=== PATIENT | female | born 1940 | race African-American/Black ===

== ENCOUNTER 2016-11-29 09:20 | Outpatient (CLI) ==
[2016-07-08 12:41] VITALS: BMI 23.5
[2016-11-29 10:19] LABS: BASOPHILS % (AUTO) 0.7 % (0.0-3.0); EOSINOPHILS # (AUTO) 0.2 K/ul (0.0-0.7); EOSINOPHILS % (AUTO) 4.3 % (0.0-7.0); HEMOGLOBIN 12.8 g/dl (12.0-16.0); IMMATURE GRANULOCYTE % (AUTO) 0.5 % (0.0-5.0); LYMPHOCYTES # (AUTO) 1.8 K/uL (0.60-3.4); MEAN CORPUSCULAR HEMOGLOBIN 29.8 pg (27.0-31.0); MEAN CORPUSCULAR HGB CONC 32.8 (31.8-35.4); MEAN CORPUSCULAR VOLUME 90.9 fl (81.0-99.0); MONOCYTES # (AUTO) 0.2 K/uL (0.4-2.0); MONOCYTES % (AUTO) 5.5 (0-10); NEUTROPHILS # (AUTO) 2.1 K/ul (2.0-6.9); PLATELET COUNT 231 10^3/uL (140-440); RED BLOOD COUNT 4.29 10^6/ul (4.20-5.40); WHITE BLOOD COUNT 4.39 K/ul (4.6-10.2)
[2016-11-29 10:30] LABS: ALBUMIN 3.8 g/dL (3.4-5.0); ANION GAP 13.7; BILIRUBIN,TOTAL 0.31 mg/dL (0.00-1.20); BUN/CREATININE RATIO 18.94; CALCIUM 9.8 mg/dL (8.2-10.2); CHOL/HDL RATIO 2.4 (4.5-5.5); CREATININE 0.95 mg/dL (0.60-1.30); POTASSIUM 3.7 mmol/L (3.5-5.10); TOTAL PROTEIN 7.6 g/dL (5.8-8.1)
== END 2016-11-29 09:21 | disposition home or self-care (01) ==
LOC: LAB 09:20
PROVIDERS: ATTEND Nurse Practitioner Family
DX: E11.9 Type 2 diabetes mellitus without complications (principal); E78.5 Hyperlipidemia, unspecified; I10 Essential (primary) hypertension
CPT/HCPCS: 36415; 80053; 80061; 83036; 85025

== ENCOUNTER → 2016-12-04 | Outpatient (POV) | payer OTHER ==
[2016-07-08 12:41] VITALS: BMI 23.5
== END ==
LOC: OUTPT 00:01
PROVIDERS: ATTEND Otolaryngology
DX: H91.90 Unspecified hearing loss, unspecified ear (principal)
CPT/HCPCS: 92557; 92567

== ENCOUNTER 2016-12-09 10:50 | Outpatient (CLI) ==
[2016-07-08 12:41] VITALS: BMI 23.5
--- NOTE | 2016-12-09 13:01 | MRI ---
EXAM: Brain MRI without contrast. HISTORY: Headache. COMPARISON: Head CT 03/26/[address] 07/29/2015. TECHNIQUE: Multiplanar, multisequence MR images were acquired of the brain without contrast. FINDINGS: The midline structures are central the ventricles are normal in size and configuration. There is mild prominence of the sulci, particular both parietal lobes and mild prominence of the pos terior bodies and atria of the lateral ventricle bilaterally. There is mild widening of the subarac hnoid space around both cerebellar hemispheres. These findings are compatible with age related invo lutional changes that are greatest involving the parietal lobes and cerebellar hemispheres. The brain parenchyma has no diffusion restriction to suggest acute hypoperfusion or infarction. Sma ll T2 hyperintensities are present in the supratentorial white matter and marlena compatible mild leuko malacia. There is no abnormal dark gradient echo signal. The corpus callosum is normal. The pitui tary gland is unremarkable. There are no intraorbital masses. There has been previous left lens surgery. Hyperostosis frontali s interna is noted. The frontal sinus is hypoplastic. There is mild mucosal thickening and a trace of fluid in the ante rior and middle ethmoid air cells bilaterally, greater on the left and minor mucosal thickening in b oth maxillary sinuses with trace of fluid on the left. Minor mucosal thickening is present in the l eft mastoid air cells. Flow voids are present in the major intracranial arteries and dural venous sinuses. IMPRESSION: 1. No intracranial mass, hemorrhage or acute cerebral infarct. 2. Mild leukomalacia. Possible etiologies include chronic ischemic small vessel disease and sequel a of migraines.
== END 2016-12-09 10:51 | disposition home or self-care (01) ==
LOC: RAD 10:50
PROVIDERS: ATTEND Nurse Practitioner Family
DX: R51 Headache (principal)

== ENCOUNTER 2017-01-22 09:14 | Outpatient (CLI) ==
[2016-07-08 12:41] VITALS: BMI 23.5
--- NOTE | 2017-01-22 10:39 | MAMMO ---
EXAM: Digital bilateral diagnostic mammogram HISTORY: Bilateral breast pain, which comes and goes COMPARISON: Mammogram 04/09/2016 and 04/07/2015 FINDINGS: CC and MLO views of the bilateral breast were performed digitally and demonstrate scatter ed fibroglandular breast density (25 - 50%). There is no new abnormal nodule or calcification. Ther e are bilateral vascular calcifications present. There is no nodule or acute abnormality to account for patient's symptoms. IMPRESSION: No abnormality to account for breast pain bilaterally. There is no suspicious nodule o r calcification. RECOMMENDATION: Return to annual screening mammogram BIRADS category II: Benign findings
== END 2017-01-22 09:15 | disposition home or self-care (01) ==
LOC: RAD 09:14
PROVIDERS: ATTEND Nurse Practitioner Family
DX: N64.4 Mastodynia (principal)

== ENCOUNTER 2017-01-24 07:49 | Outpatient (CLI) ==
[2016-07-08 12:41] VITALS: BMI 23.5
--- NOTE | 2017-01-24 08:51 | US ---
EXAM: Abdominal ultrasound limited HISTORY: Right lower quadrant pain COMPARISON: Abdominal ultrasound 05/12/[address] abdomen pelvis 04/08/2013 TECHNIQUE: Sonographic and limited Doppler evaluation of the right upper quadrant was performed. FINDINGS: The liver is increased in echogenicity and measures 12.8 cm. The portal vein is patent. The gallbladder appears contracted with no visualized stones or sludge. The gallbladder wall measu res 0.2 cm in thickness. Common bile duct is unremarkable and measures 0.5 cm in diameter. The panc reas is largely obscured due to bowel gas. The right kidney measures 8.8 x 3.6 x 3.7 cm with 0.8 cm of renal cortical thickness. There is no hydronephrosis or visualized stone. IMPRESSION: 1. Increased echogenicity of the liver suggestive of hepatic steatosis. 2. Gallbladder is contracted with no visualized stones or pericholecystic fluid.
== END 2017-01-24 07:50 | disposition home or self-care (01) ==
LOC: RAD 07:49
PROVIDERS: ATTEND Nurse Practitioner Family
DX: M54.10 Radiculopathy, site unspecified (principal); R10.31 Right lower quadrant pain

== ENCOUNTER 2017-01-29 09:42 | Outpatient (CLI) ==
[2016-07-08 12:41] VITALS: BMI 23.5
--- NOTE | 2017-01-29 15:29 | MRI ---
EXAM: MRI lumbar spine without IV contrast. DATE: 29 January 2017. HISTORY: Lumbar radiculopathy. TECHNIQUE: Sagittal and axial T1W and T2W sequences of the lumbar spine along with sagittal IR and coronal T2W sequences were obtained using 1.2 Dora magnet. No IV contrast. COMPARISON: LS spine series [address] abdomen/pelvis 08 April 2013. FINDINGS: There are five [id number] lumbar vertebra. Moderate (27 degrees) leftward curvature of the lumbar spine is present, with the apex of curvature at L3-4. A 1.6 mm anterior subluxation L3 relative to L2, a 2 mm anterolisthesis of L4 relative to L3, and 2.7 mm anterolisthesis of L4 rel ative to L5 due to facet disease. A 2 mm left lateral subluxation of L2 relative to L1 and 4.4 mm l eft lateral subluxation of L4 relative to L5 are likely due to the scoliosis and facet disease. No other subluxation, acute fracture, osseous malignancy, or pars interarticularis defect is identified . Lumbar vertebra are normal in height. Moderate/large osteophytes are noted throughout the lumbar spine. T2W/T1W bright, 9 x 12 mm focus in the T12 body is likely a benign hemangioma. Chronic Mary morl's nodes are seen at T12, L1, L2, L3. Moderate/marked T12, marked L1-2, marked L3-4, marked L4- 5, moderate/marked L4-5, and marked L5-S1 disc space narrowing is detected. No sacral fracture or s tress reaction is demonstrated. Small anterior osteophytes at each SI joint consistent with arthrit is. Conus medullaris terminates L1-2. Visible spinal cord is normal. No retroperitoneal lymphadenopathy, paraspinal mass, or aortic aneurysm is detected. Paraspinal mus culature is symmetric bilaterally. Visible portions of the liver, spleen, and right kidney are unre markable. A 3 mm diameter, T2W bright focus in the anterolateral cortex upper pole left kidney is l ikely benign cyst. Prominent bilateral extrarenal pelves are normal variation. T2W/T1W intermediate signal, 5 mm focus at the medial limb right adrenal gland and mild fullness at the left adrenal caballero b (5.8 x 11 mm) correspond with low density foci on the previous CT scan, suggesting adenomas. No b owel obstruction or neoplasm is identified. Segmental analysis: T10-11: Sagittal images reveal minimal posterior disc bulge, but no cord compression, central steno sis or foraminal stenosis. T11-12: Normal, except for minor left foraminal narrowing due to mild facet arthropathy. T12-L1: Moderate concentric disc bulge, mild facet arthropathy, and minor ligamentum flavum hypertr ophy cause moderate central canal stenosis and mild/moderate left foraminal stenosis. L1-2: Small concentric disc bulge, moderate bilateral facet arthropathy and moderate ligamentum fla vum hypertrophy cause triangulation of the canal, mild right foraminal stenosis, and moderate left f oraminal stenosis. Left L1 nerve root may contact the disc bulge just lateral to the foramen. L2-3: Minor anterior subluxation of L3, moderate concentric disc bulge, mild bilateral facet arthro ayush, and mild/moderate ligamentum flavum hypertrophy cause moderate central canal stenosis, modera te/marked right foraminal stenosis, and mild left foraminal stenosis. L3-4: Minor anterior subluxation of L4, moderate concentric disc bulge, small spondylotic ridge at the L3 inferior endplate, moderate right facet arthropathy, mild left facet arthropathy, mild ligame ntum flavum hypertrophy and abundant dorsal epidural fat cause marked central canal stenosis and mod erate bilateral foraminal stenoses. Each L3 nerve root appears to contact the disc bulge near the l ateral margin of the foramen. L4-5: Minor anterior subluxation of L4, moderate concentric disc bulge, marked right facet arthropa thy, moderate left facet arthropathy, and moderate ligamentum flavum hypertrophy cause marked centra l canal stenosis, mild/moderate right foraminal stenosis and mild left foraminal stenosis. L5-S1: Moderate concentric disc bulge, small spondylotic ridge at the L5 inferior endplate, mild ri ght facet arthropathy, marked left facet arthropathy, and mild ligamentum flavum hypertrophy cause m ild central canal stenosis, mild right foraminal stenosis, and severe left foraminal stenosis. Left L5 nerve root is compressed in the foramen. IMPRESSIONS: 1. Lumbar spine moderate rotatory levoscoliosis, marked spondylosis, moderate facet arthropathy, mu ltiple subluxations due to facet disease, and multilevel DDD. 2. Multilevel central canal stenoses (T12-L1: Moderate. L1-2: Triangulation of canal. L2-3: Moder ate. L3-4: Marked. L4-5: Marked. L5-S1: Mild). 3. Multilevel foraminal stenosis. Left L1, both L3, and left L5 nerve roots compromised near the f oramen, and may be sources for pain/radiculopathy. 4. T-L-spine small, chronic Schmorl's nodes. 5. Benign hemangioma in T12 vertebral body. 6. Bilateral adrenal lesions - c/w adenomas. 7. Left kidney benign cortical cyst (3 mm).
== END 2017-01-29 09:43 | disposition home or self-care (01) ==
LOC: RAD 09:42
PROVIDERS: ATTEND Nurse Practitioner Family
DX: M54.10 Radiculopathy, site unspecified (principal)

== ENCOUNTER 2017-02-11 10:59 | Outpatient (CLI) ==
[2016-07-08 12:41] VITALS: BMI 23.5
== END 2017-02-11 11:00 | disposition home or self-care (01) ==
LOC: RAD 10:59
PROVIDERS: ATTEND Nurse Practitioner Family
DX: M79.605 Pain in left leg (principal); M79.604 Pain in right leg

== ENCOUNTER → 2017-05-19 | Outpatient (RCR) ==
[2016-07-08 12:41] VITALS: BMI 23.5
--- NOTE | 2017-05-06 09:41 | RS.OPPTEV2 ---
Date of Note: 05/05/17 Visit #: 1 Date of Evaluation: 05/05/17 Payer Source: MEDICARE Treatment Diagnosis: LE weakness History of Condition/Mechanism of Injury:: Patient reports progressively getting more unstable. Prior Level of Function.....Patient was independent with: ADL's, Self Care, Ambulation/Mobility, Community Integration/Access Functional Limitations: ADL's, Standing, Squatting, Ambulation, Community Access /Integration Current Subjective/complaints:: Patient reports her right LE is shorter and has gotten worse. States she has worn a shoe lift for a long time. She has been ambulating with a straight cane for over 10 years. Her legs swell. States she fell once this year and fell once last year. Reports no vision in the right eye. Reports difficulty walking long distances. States she feels unstable when walking. Medical History Medical History: Hypertension, Diabetes, Angina, Arthritis Surgical History: Hysterectomy Surgical History Comments:: Left eye implant 3 years ago, appendectomy Smoking Status: Never smoker Patient's Goals: Her goal is to be more stable with her walking and avoid falls. Functional Outcome Measure Tinetti: 14 (14/28=50% impairment) - G Codes & Severity Modifier G Codes & Modifier: Mobility current CK. Mobility goal CI Source of G Code score: Patient does not score LE functional scale appropriately. G codes based on Tinetti Assessment. Observation - Observation Inspection: Bilateral LE's present with swelling throughout the ankles to the hips. Left knee presents more swelling on the medial side of the knee joint. In standing, patient presents with the right LE appearing shorter. Gait - Gait Pattern Gait Comments: Patient ambulates with a straight cane independently into the department. She demonstrates asymmetrical stride and step length. Demonstrates inconsistently clearing of her feet during swing phase. She deviates from a straight path minimal to moderately in the department. General Range of Motion: Bilateral LE AROM is WFL's. Muscle Strength: Right LE generally 4-/5 throughout. Left LE 4 to 4+/5 throughout. Sensation - Sensation Comments: Reports some numbness along the lateral right foot and lower leg. Balance - Sitting Balance Static Sitting Balance: Good Dynamic Sitting Balance: Good - Standing Balance Static Standing Balance: Fair (+) Dynamic Standing Balance: Fair Interventions - Exercise/Activities/Manual Therapy Exercises/Activities: No exercises given today. Manual Therapy: NA - Charges Total Direct Minutes: 55 mins Total Treatment Time: 55 mins Procedures billed for this date of service:: [facility] Assessment Assessment: Patient presents to therapy with a diagnosis of LE weakness. She reports difficulty walking. She presents with multiple issues that put her at a high risk for falls: vision problems, LE sensation disturbances, LE weakness, use of an assistive device. She demonstrates potential to benefit from strengthening exercises and education for safety to decrease her risk for falls. Patient Education: Education of diagnosis, Home Safety, Education of Plan of Care Rehab Potential: Good Short Term Goals Goal #1: Right LE strength 4/5. Goal to be met by: 05/20/17 Goal #2: Left LE strength 4+/5. Goal to be met by: 05/20/17 Goal #3: Static standing balance good. Goal to be met by: 05/20/17 Goal #4: Pt will consistently clear feet during swing phase w/ amb. in department. Goal to be met by: 05/20/17 Residential Goals Goal #1: Pt knows HEP and to continue ex's to maintain functional level at D/C. Goal to be met by: 06/19/17 Goal #2: Score on Tinetti Assessment improved to 20/28. Goal to be met by: 06/19/17 Goal #3: Pt to amb. community distances with good safety. Goal to be met by: 06/19/17 Goal #4: Pt will report improved confidence in walking and safety. Goal to be met by: 06/19/17 Plan - Treatment to be Provided Procedures: Therapeutic Exercises, Therapeutic Activity, Manual Therapy, Patient Education Modalities: No Modalities - Treatment Plan Frequency: 2-3 X week Duration: 4 weeks ORDER # VISITS AND/OR THROUGH DATE: 06/19/17 - Treatment Code (1) Gait abnormality Comments: R26.9 (2) Leg weakness, bilateral Comments: R29.898
--- NOTE | 2017-05-08 11:08 | RS.OPPTDN ---
Subjective Date of Note: 05/08/17 Date of Evaluation: 05/05/17 Payer Source: MEDICARE Treatment Diagnosis: LE weakness Current Subjective/complaints:: Patient reports her legs feel weak and shaky today. Interventions - Exercise/Activities/Manual Therapy Exercises/Activities: 35 mins. total of supine and sitting LE exercises, consisting of ankle pumps,quad sets,SAQ's assisted heelslides,isometric hip abd/ add,laq"s.2.5 # resistance used for SAQ's and LAQ's,2/15 each.10 reps. sit to stand with CGA of 1. Total minutes of Exercise: 35 Manual Therapy: NA Total minutes of Manual Therapy: 0 - Charges Total Direct Minutes: 35 Total Treatment Time: 35 Procedures billed for this date of service:: ex 2 Assessment: Patient reports L knee patellar pain with AROM today.Instructed to do exercises in pain free ROM.She has trunk sway noted with transfers and ambulation.She has significant weakness in all LE muscles.She can benefit from skilled PT to increase her strength,resulting in safer ADL's. Patient Education: Education of diagnosis, Body/Joint mechanics, Home Exercise Program, Home Safety, Activity Modification, Education of Plan of Care Short Term Goals Goal #1: Right LE strength 4/5. Goal to be met by: 05/20/17 Goal #2: Left LE strength 4+/5. Goal to be met by: 05/20/17 Goal #3: Static standing balance good. Goal to be met by: 05/20/17 Goal #4: Pt will consistently clear feet during swing phase w/ amb. in department. Goal to be met by: 05/20/17 Longterm Goals Goal #1: Pt knows HEP and to continue ex's to maintain functional level at D/C. Goal to be met by: 06/19/17 Goal #2: Score on Tinetti Assessment improved to 20/28. Goal to be met by: 06/19/17 Goal #3: Pt to amb. community distances with good safety. Goal to be met by: 06/19/17 Goal #4: Pt will report improved confidence in walking and safety. Goal to be met by: 06/19/17 Plan PLAN OF CARE EXPIRES ON:: 06/19/17 ORDER # VISITS AND/OR THROUGH DATE: 06/19/17 PLAN: Continue Plan of Care
--- NOTE | 2017-05-13 11:53 | RS.OPPTDN ---
Subjective Date of Note: 05/13/17 Visit #: 3 Date of Evaluation: 05/05/17 Payer Source: MEDICARE Treatment Diagnosis: LE weakness Current Subjective/complaints:: No c/o. Interventions - Exercise/Activities/Manual Therapy Exercises/Activities: 35 mins. total on leg press today.01/01 reps. each @ 15,30 and 45# resistance.Sit to stand transfers x 5 with CGA of 1,ended session with safety education for gait,use of cane and LE exercises. Total minutes of Exercise: 35 Manual Therapy: NA Total minutes of Manual Therapy: 0 HOME EXERCISE PROGRAM: Ankle pumps,SAQ's,SLR's,heelslides ,2-3x/day as tolerated. - Charges Total Direct Minutes: 35 Total Treatment Time: 35 Procedures billed for this date of service:: ex 2 Assessment: Patient tolerates resistive exercises well today,with no report of LE pain ,fatigue only.She does require cues to control speed of eccentric motions.Her balance is affected by LE length discrepancy and visual deficit. Patient Education: Education of diagnosis, Body/Joint mechanics, Home Exercise Program, Home Safety, Activity Modification, Education of Plan of Care Short Term Goals Goal #1: Right LE strength 4/5. Goal to be met by: 05/20/17 Progress towards Goal:: Progressing Goal #2: Left LE strength 4+/5. Goal to be met by: 05/20/17 Progress towards Goal:: Progressing Goal #3: Static standing balance good. Goal to be met by: 05/20/17 Goal #4: Pt will consistently clear feet during swing phase w/ amb. in department. Goal to be met by: 05/20/17 Intermediate Goals Goal #1: Pt knows HEP and to continue ex's to maintain functional level at D/C. Goal to be met by: 06/19/17 Goal #2: Score on Tinetti Assessment improved to 20/28. Goal to be met by: 06/19/17 Goal #3: Pt to amb. community distances with good safety. Goal to be met by: 06/19/17 Goal #4: Pt will report improved confidence in walking and safety. Goal to be met by: 06/19/17 Plan PLAN OF CARE EXPIRES ON:: 06/19/17 ORDER # VISITS AND/OR THROUGH DATE: 06/19/17 PLAN: Continue Plan of Care
--- NOTE | 2017-05-15 11:59 | RS.OPPTDN ---
Subjective Date of Note: 05/15/17 Visit #: 4 Date of Evaluation: 05/05/17 Payer Source: MEDICARE Treatment Diagnosis: LE weakness Current Subjective/complaints:: Patient reports muscle soreness in her legs after last PT visit,but ,"tolerable". Pain Assessment - Pain Description Pain Description: muscle soreness Current Pain Intensity: not rated Interventions - Exercise/Activities/Manual Therapy Exercises/Activities: 35 mins. total in supine and sitting.2 / # resiatance for heelslides hip abd/adduction,SAQ's,LAQ's,3/10 -15 reps.each exercise.Attempted marching in place holding to stPlayrific hand rail,but unsafe. Total minutes of Exercise: 35 Manual Therapy: NA Total minutes of Manual Therapy: 0 HOME EXERCISE PROGRAM: Ankle pumps,SAQ's,SLR's,heelslides ,2-3x/day as tolerated. - Charges Total Direct Minutes: 35 Total Treatment Time: 35 Procedures billed for this date of service:: ex 2 Assessment: Patient requires cue for proper technique with exercises,tends to cano herself.She rrequires frequent rest periods due to weakness.She has instability in knees due to arthritis,stands with valgus deformity bilaterally.She cannot safely do standing hip flexion due to weakness and joint instabilty. Patient Education: Home Exercise Program, Home Safety Short Term Goals Goal #1: Right LE strength 4/5. Goal to be met by: 05/20/17 Progress towards Goal:: Progressing Goal #2: Left LE strength 4+/5. Goal to be met by: 05/20/17 Progress towards Goal:: Progressing Goal #3: Static standing balance good. Goal to be met by: 05/20/17 Progress towards Goal:: No Change Goal #4: Pt will consistently clear feet during swing phase w/ amb. in department. Goal to be met by: 05/20/17 Progress towards Goal:: No Change Nursing Home Goals Goal #1: Pt knows HEP and to continue ex's to maintain functional level at D/C. Goal to be met by: 06/19/17 Goal #2: Score on Tinetti Assessment improved to 20/28. Goal to be met by: 06/19/17 Goal #3: Pt to amb. community distances with good safety. Goal to be met by: 06/19/17 Goal #4: Pt will report improved confidence in walking and safety. Goal to be met by: 06/19/17 Plan PLAN OF CARE EXPIRES ON:: 06/19/17 ORDER # VISITS AND/OR THROUGH DATE: 06/19/17 PLAN: Continue Plan of Care
--- NOTE | 2017-05-19 11:52 | RS.OPPTDN ---
Subjective Date of Note: 05/19/17 Visit #: 5 Date of Evaluation: 05/05/17 Payer Source: MEDICARE Treatment Diagnosis: LE weakness Current Subjective/complaints:: Patient reports she had multiple joint pain over the weekend,but feels better today in her legs. Pain Assessment - Pain Description Pain Description: Aching Pain Description: muscle soreness Current Pain Intensity: not rated Interventions - Exercise/Activities/Manual Therapy Exercises/Activities: 35 mins. total including 3/15 reps. on leg press @ 15,30, 45 #.Isometric hip adduction with small therapy ball between knees,then using green theraband for hip abduction.Ended session with 3/10 reps of ankle pumps and assisted heelcord stretching. Total minutes of Exercise: 35 Manual Therapy: NA Total minutes of Manual Therapy: 0 HOME EXERCISE PROGRAM: Ankle pumps,SAQ's,SLR's,heelslides ,2-3x/day as tolerated. - Charges Total Direct Minutes: 35 Total Treatment Time: 35 Procedures billed for this date of service:: ex 2 Assessment: Patient has improved control of eccentric movements today,as her LE strength is slowly improving.She has weakness in her hip flexors,resulting in decreased foot clearance bilaterally. Patient Education: Body/Joint mechanics, Home Exercise Program, Education of Plan of Care Short Term Goals Goal #1: Right LE strength 4/5. Goal to be met by: 05/20/17 Progress towards Goal:: Progressing Goal #2: Left LE strength 4+/5. Goal to be met by: 05/20/17 Progress towards Goal:: Progressing Goal #3: Static standing balance good. Goal to be met by: 05/20/17 Progress towards Goal:: No Change Goal #4: Pt will consistently clear feet during swing phase w/ amb. in department. Goal to be met by: 05/20/17 Progress towards Goal:: No Change Care Home Goals Goal #1: Pt knows HEP and to continue ex's to maintain functional level at D/C. Goal to be met by: 06/19/17 Goal #2: Score on Tinetti Assessment improved to 20/28. Goal to be met by: 06/19/17 Goal #3: Pt to amb. community distances with good safety. Goal to be met by: 06/19/17 Goal #4: Pt will report improved confidence in walking and safety. Goal to be met by: 06/19/17 Progress towards goal: Progressing Plan PLAN OF CARE EXPIRES ON:: 06/19/17 ORDER # VISITS AND/OR THROUGH DATE: 06/19/17 PLAN: Continue Plan of Care
== END ==
PROVIDERS: ATTEND Nurse Practitioner Family
DX: R29.898 Other symptoms and signs involving the musculoskeletal system (principal)

== ENCOUNTER 2017-05-20 12:17 | Outpatient (CLI) ==
[2017-02-11 11:05] VITALS: BMI 23.5
== END 2017-05-20 12:18 | disposition home or self-care (01) ==
LOC: LAB 12:17
PROVIDERS: ATTEND Clinical Nurse Specialist Adult Health
DX: H02.401 Unspecified ptosis of right eyelid (principal)
CPT/HCPCS: 36415

== ENCOUNTER 2017-06-13 11:00 | Outpatient (RCR) ==
[2017-02-11 11:05] VITALS: BMI 23.5
--- NOTE | 2017-05-23 12:08 | RS.OPPTDN ---
Subjective Date of Note: 05/23/17 Visit #: 6 Date of Evaluation: 05/05/17 Payer Source: MEDICARE Treatment Diagnosis: LE weakness Current Subjective/complaints:: Patient pleasant,reports her legs feel ,"a little stronger." Pain Assessment - Pain Description Pain Location: Reports no pain today in the cervical area. Pain Description: muscle soreness Current Pain Intensity: not rated Interventions - Exercise/Activities/Manual Therapy Exercises/Activities: 45 mins. total including 3/15 reps. on leg press @ 15,30, 45 #.Isometric hip adduction with small therapy ball between knees,then using green theraband for hip abduction.Ended session with step - ups x 10 reps.on 4 " step with hand hold assist and cane. Total minutes of Exercise: 45 Manual Therapy: NA Total minutes of Manual Therapy: 0 HOME EXERCISE PROGRAM: Ankle pumps,SAQ's,SLR's,heelslides ,2-3x/day as tolerated. - Charges Total Direct Minutes: 45 Total Treatment Time: 45 Procedures billed for this date of service:: ex 2,ther. act. 1 Assessment: Patient has steadier transfers and gait today,with improved foot clearance on the L .She reports muscle fatigue only during resistive exercises.She continues ambulate with widened EMEKA for safety.Her R LE is shorter than the L LE.She is cautious and has improved safety awareness,also regarding use of appropriate assistive device,cane vs. walker when necessary. Patient Education: Education of diagnosis, Body/Joint mechanics, Home Exercise Program, Home Safety, Activity Modification, Education of Plan of Care Short Term Goals Goal #1: Right LE strength 4/5. Goal to be met by: 05/20/17 Progress towards Goal:: Progressing Goal #2: Left LE strength 4+/5. Goal to be met by: 05/20/17 Progress towards Goal:: Progressing Goal #3: Static standing balance good. Goal to be met by: 05/20/17 Progress towards Goal:: Progressing Goal #4: Pt will consistently clear feet during swing phase w/ amb. in department. Goal to be met by: 05/20/17 Progress towards Goal:: No Change [employer] Goals Goal #1: Pt knows HEP and to continue ex's to maintain functional level at D/C. Goal to be met by: 06/19/17 Progress towards goal: Progressing Goal #2: Score on Tinetti Assessment improved to 20/28. Goal to be met by: 06/19/17 Goal #3: Pt to amb. community distances with good safety. Goal to be met by: 06/19/17 Progress towards goal: Progressing Goal #4: Pt will report improved confidence in walking and safety. Goal to be met by: 06/19/17 Progress towards goal: Progressing Plan PLAN OF CARE EXPIRES ON:: 06/19/17 ORDER # VISITS AND/OR THROUGH DATE: 06/19/17 PLAN: Continue Plan of Care
--- NOTE | 2017-05-28 11:47 | RS.OPPTDN ---
Subjective Date of Note: 05/28/17 Visit #: 7 Date of Evaluation: 05/05/17 Payer Source: MEDICARE Treatment Diagnosis: LE weakness Current Subjective/complaints:: Patient reports her leg muscles feel stronger , but the knee pain is unpredictable. Pain Assessment - Pain Description Pain Location: Reports no pain today in the cervical area. Pain Description: muscle soreness Current Pain Intensity: not rated Other Comments regarding Pain:: Dull ache most of the time ,but occasionally sharp when attempting to stand. Interventions - Exercise/Activities/Manual Therapy Exercises/Activities: 35 mins. total including 3/15 reps. on leg press @ 30,45 # .2 sets /10 reps. @ 60 #.Isometric hip adduction with small therapy ball between knees while doing leg press exercises today. hip abduction ,3/15 with green theraband exercises.Seated hip flexion ,3/10 reps. at end of session. Total minutes of Exercise: 35 Manual Therapy: NA Total minutes of Manual Therapy: 0 HOME EXERCISE PROGRAM: Ankle pumps,SAQ's,SLR's,heelslides ,2-3x/day as tolerated. - Charges Total Direct Minutes: 35 Total Treatment Time: 35 Procedures billed for this date of service:: ex 2 Assessment: Patient has increased leg strenght as indicated the increased resistance on leg press.She also has improved control and speed of movement, especially with eccentrics today.Her gait presents with improved foot clearance as her hip flexor strength is slowly improving. Patient Education: Education of diagnosis, Body/Joint mechanics, Home Exercise Program, Home Safety, Activity Modification, Education of Plan of Care Short Term Goals Goal #1: Right LE strength 4/5. Goal to be met by: 05/20/17 Progress towards Goal:: Progressing Goal #2: Left LE strength 4+/5. Goal to be met by: 05/20/17 Progress towards Goal:: Progressing Goal #3: Static standing balance good. Goal to be met by: 05/20/17 (good -) Progress towards Goal:: Partially Met Goal #4: Pt will consistently clear feet during swing phase w/ amb. in department. Goal to be met by: 05/20/17 Progress towards Goal:: Progressing Usp Goals Goal #1: Pt knows HEP and to continue ex's to maintain functional level at D/C. Goal to be met by: 06/19/17 Progress towards goal: Progressing Goal #2: Score on Tinetti Assessment improved to 20/28. Goal to be met by: 06/19/17 Goal #3: Pt to amb. community distances with good safety. Goal to be met by: 06/19/17 Progress towards goal: Progressing Goal #4: Pt will report improved confidence in walking and safety. Goal to be met by: 06/19/17 Progress towards goal: Progressing Plan PLAN OF CARE EXPIRES ON:: 06/19/17 ORDER # VISITS AND/OR THROUGH DATE: 06/19/17 PLAN: Continue Plan of Care
--- NOTE | 2017-06-02 12:03 | RS.OPPTDN ---
Subjective Date of Note: 06/02/17 Visit #: 8 Date of Evaluation: 05/05/17 Payer Source: MEDICARE Treatment Diagnosis: LE weakness Current Subjective/complaints:: Patient reports her knee pain varies ,but does feel her legs are stronger.She demonstrates thet she can pivot safely with using cane. Pain Assessment - Pain Description Pain Location: Reports no pain today in the cervical area. Pain Description: Dull, Aching Pain Description: muscle soreness Current Pain Intensity: not rated Other Comments regarding Pain:: occasional sharp pain dueto arhtritis Interventions - Exercise/Activities/Manual Therapy Exercises/Activities: 40 mins. total supine exercises today of 3/10 each , including ankle pumps,QS,SAQ's ,hip abd /adduction with 2.5 #.Bridging and SLR' s without resistance. Total minutes of Exercise: 40 Manual Therapy: NA Total minutes of Manual Therapy: 0 HOME EXERCISE PROGRAM: Ankle pumps,SAQ's,SLR's,heelslides ,2-3x/day as tolerated. - Charges Total Direct Minutes: 40 Total Treatment Time: 40 Procedures billed for this date of service:: ex 3 Assessment: Cheryl has steadier transfers and gait today ,able to pivot 360 without loss of balance (assist of cane on a regular basis.He trunk sway with ambulation is consistently present ,but she has bilateral valgus at knees and R LE shorter than the L. Patient Education: Education of diagnosis, Body/Joint mechanics, Home Exercise Program, Home Safety, Activity Modification, Education of Plan of Care Short Term Goals Goal #1: Right LE strength 4/5. Goal to be met by: 05/20/17 Progress towards Goal:: Progressing Goal #2: Left LE strength 4+/5. Goal to be met by: 05/20/17 Progress towards Goal:: Progressing Goal #3: Static standing balance good. Goal to be met by: 05/20/17 (good -) Progress towards Goal:: Met Goal #4: Pt will consistently clear feet during swing phase w/ amb. in department. Goal to be met by: 05/20/17 Progress towards Goal:: Partially Met Special Tester Goals Goal #1: Pt knows HEP and to continue ex's to maintain functional level at D/C. Goal to be met by: 06/19/17 Progress towards goal: Progressing Goal #2: Score on Tinetti Assessment improved to 20/28. Goal to be met by: 06/19/17 Goal #3: Pt to amb. community distances with good safety. Goal to be met by: 06/19/17 Progress towards goal: Progressing Goal #4: Pt will report improved confidence in walking and safety. Goal to be met by: 06/19/17 Progress towards goal: Partially Met Plan PLAN OF CARE EXPIRES ON:: 06/19/17 ORDER # VISITS AND/OR THROUGH DATE: 06/19/17 PLAN: Continue Plan of Care
--- NOTE | 2017-06-05 12:01 | RS.OPPTDN ---
Subjective Date of Note: 06/05/17 Visit #: 9 Date of Evaluation: 05/05/17 Payer Source: MEDICARE Treatment Diagnosis: LE weakness Current Subjective/complaints:: Patient reports she had appt. yesterday at [facility].She has follow-up appt. next month (per patient) regarding her knees. Pain Assessment - Pain Description Pain Location: Reports no pain today in the cervical area. Pain Description: Dull, Aching Pain Description: muscle soreness Current Pain Intensity: not rated Interventions - Exercise/Activities/Manual Therapy Exercises/Activities: 35 mins. total ,beginning on leg pres,5 sets/15 reps @ 30 # with small therapy ball between knees for alignment.Red theraband hip abd.add while seated,/10.Multiple reps. sit to stand from chair with cues for safety, then pivoting to L and R x 2 each with SBA of 1.HEP review. Total minutes of Exercise: 35 Manual Therapy: NA Total minutes of Manual Therapy: 0 HOME EXERCISE PROGRAM: Ankle pumps,SAQ's,SLR's,heelslides ,2-3x/day as tolerated. - Charges Total Direct Minutes: 35 Total Treatment Time: 35 Procedures billed for this date of service:: ex 2 Assessment: Patient continues to have same gait pattern for her security , minimal knee flexion present for stability,but she has improved sit to stand / stand to sit transfers.She is steadier with change of direction ,but understands to use her cane for ADL's,otherwise would be a higher risk for falls. Patient Education: Education of diagnosis, Body/Joint mechanics, Home Exercise Program, Home Safety, Activity Modification, Education of Plan of Care Patient demonstrates compliance with HEP?: Yes Short Term Goals Goal #1: Right LE strength 4/5. Goal to be met by: 05/20/17 Progress towards Goal:: Progressing Goal #2: Left LE strength 4+/5. Goal to be met by: 05/20/17 Progress towards Goal:: Progressing Goal #3: Static standing balance good. Goal to be met by: 05/20/17 (good -) Progress towards Goal:: Met Goal #4: Pt will consistently clear feet during swing phase w/ amb. in department. Goal to be met by: 05/20/17 Progress towards Goal:: Partially Met Cotton Tier Goals Goal #1: Pt knows HEP and to continue ex's to maintain functional level at D/C. Goal to be met by: 06/19/17 Progress towards goal: Partially Met Goal #2: Score on Tinetti Assessment improved to 20/28. Goal to be met by: 06/19/17 Goal #3: Pt to amb. community distances with good safety. Goal to be met by: 06/19/17 Progress towards goal: Progressing Goal #4: Pt will report improved confidence in walking and safety. Goal to be met by: 06/19/17 Progress towards goal: Partially Met Plan PLAN OF CARE EXPIRES ON:: 06/19/17 ORDER # VISITS AND/OR THROUGH DATE: 06/19/17 PLAN: Continue Plan of Care
--- NOTE | 2017-06-13 12:06 | RS.OPPTDN ---
Subjective Date of Note: 06/13/17 Visit #: 10 Date of Evaluation: 05/05/17 Payer Source: MEDICARE Treatment Diagnosis: LE weakness Current Subjective/complaints:: Patient reports slight improvement ,but agrees with D/C plan today.She does feel it is easier to stand. Pain Assessment - Pain Description Pain Location: knees Pain Description: Dull, Aching Pain Description: muscle soreness Current Pain Intensity: not rated Interventions - Exercise/Activities/Manual Therapy Exercises/Activities: 30 mins. total Tinetti assessment for balance and gait done today.HEP review,and safety awareness for ADL's. Total minutes of Exercise: 30 Manual Therapy: NA Total minutes of Manual Therapy: 0 HOME EXERCISE PROGRAM: Ankle pumps,SAQ's,SLR's,heelslides ,2-3x/day as tolerated. - Charges Total Direct Minutes: 30 Total Treatment Time: 30 Procedures billed for this date of service:: ex 2 Assessment: Patient has met rehab potential at this time .Her balance is now mostly affected by knee instability.She is contemplating having knee replacements in the future as she recently had appt. with [facility] [place].She has improved safety awareness for transfers and ambulating with cane.She is aware of D/C plan today. Patient Education: Body/Joint mechanics, Home Exercise Program, Home Safety Patient demonstrates compliance with HEP?: Yes Short Term Goals Goal #1: Right LE strength 4/5. Goal to be met by: 05/20/17 Progress towards Goal:: Partially Met Goal #2: Left LE strength 4+/5. Goal to be met by: 05/20/17 Progress towards Goal:: Partially Met Goal #3: Static standing balance good. Goal to be met by: 05/20/17 (good -) Progress towards Goal:: Met Goal #4: Pt will consistently clear feet during swing phase w/ amb. in department. Goal to be met by: 05/20/17 Progress towards Goal:: Partially Met Children Counselor Goals Goal #1: Pt knows HEP and to continue ex's to maintain functional level at D/C. Goal to be met by: 06/19/17 Progress towards goal: Partially Met Goal #2: Score on Tinetti Assessment improved to 20/28. Goal to be met by: 06/19/17 (19) Progress towards goal: Progressing Goal #3: Pt to amb. community distances with good safety. Goal to be met by: 06/19/17 Progress towards goal: Partially Met Goal #4: Pt will report improved confidence in walking and safety. Goal to be met by: 06/19/17 Progress towards goal: Partially Met Plan PLAN OF CARE EXPIRES ON:: 06/19/17 ORDER # VISITS AND/OR THROUGH DATE: 06/19/17 PLAN: Plan for Discharge
== END 2017-06-19 ==
PROVIDERS: ATTEND Nurse Practitioner Family
DX: R29.898 Other symptoms and signs involving the musculoskeletal system (principal)

== ENCOUNTER 2017-07-03 10:27 | Outpatient (CLI) ==
[2017-02-11 11:05] VITALS: BMI 23.5
--- NOTE | 2017-07-03 12:13 | CT ---
EXAM: CT Abdomen without contrast. CT Pelvis without contrast. HISTORY: Generalized abdominal pain. COMPARISON: 04/08/2013. TECHNIQUE: Multiple axial images of the abdomen and pelvis were obtained without intravenous contras t. Images were reformatted in the coronal plane. FINDINGS: Please note that evaluation of the abdominal and pelvic structures is limited due to lack of intravenous contrast. Lung bases are clear. Degenerative changes present throughout the spine. Coarse calcification posterior to the liver again noted. Gallbladder is not well distended. The tucker creas, and spleen demonstrate normal contour. Bilateral adrenal adenomas are stable . No calcified renal stones or hydronephrosis detected. The bowel is normal in course and caliber without evidence for obstruction or inflammatory process. Uterus not seen. Urinary bladder is unremarkable. No free fluid or free air identified. Clips seen in the region of the left gluteus bernabe. Since the prior study, there has been no significant interval change IMPRESSION: No acute process.
== END 2017-07-03 10:28 | disposition home or self-care (01) ==
LOC: RAD 10:27
PROVIDERS: ATTEND Nurse Practitioner Family
DX: R10.9 Unspecified abdominal pain (principal)

== ENCOUNTER 2017-07-10 12:56 | Emergency (ER) ==
[2017-07-10 13:05] VITALS: BP 157/96; TEMP 97.4; BMI 24.2
[2017-07-10 13:43] LABS: BASOPHILS % (AUTO) 0.5 % (0.0-3.0); EOSINOPHILS # (AUTO) 0.2 K/ul (0.0-0.7); HEMATOCRIT 32.9 % (37.0-47.0); HEMOGLOBIN 11.3 g/dl (12.0-16.0); IMMATURE GRANULOCYTE % (AUTO) 0.2 % (0.0-5.0); LYMPHOCYTES # (AUTO) 1.9 K/uL (0.60-3.4); MEAN CORPUSCULAR HEMOGLOBIN 30.4 pg (27.0-31.0); MEAN CORPUSCULAR HGB CONC 34.3 (31.8-35.4); MEAN CORPUSCULAR VOLUME 88.4 fl (81.0-99.0); MONOCYTES # (AUTO) 0.2 K/uL (0.4-2.0); NEUTROPHILS # (AUTO) 1.7 K/ul (2.0-6.9); NEUTROPHILS % (AUTO) 43.3; PLATELET COUNT 180 10^3/uL (140-440); RED BLOOD COUNT 3.72 10^6/ul (4.20-5.40); WHITE BLOOD COUNT 4.02 K/ul (4.6-10.2)
--- NOTE | 2017-07-10 13:52 | DI ---
EXAM: Four views of the left knee. History: Left knee pain. Comparison: Left knee radiograph 12/17/2009 Findings: No acute fracture or dislocation. Moderate narrowing of the lateral compartment with osteo phytes slightly progressed compared to the prior study. Mild narrowing of the medial and patellofemo ral compartments. No change in the medial soft tissue prominence. Impression: 1. No acute osseous abnormality. 2. Slightly progressive osteoarthritis.
--- NOTE | 2017-07-10 13:57 | DI ---
EXAM: Four views of the right knee. History: Right knee pain and swelling. Findings: No acute fracture or dislocation. Moderate narrowing of the lateral compartment. Mild na rrowing of the medial and patellofemoral compartments. There are osteophytes. Medial soft tissue pr ominence. There are could be varicose veins. Atherosclerotic vascular calcifications Impression: No acute osseous abnormality. Osteoarthritis which is moderate in the lateral compartme nt
[2017-07-10 14:10] LABS: ALBUMIN 3.3 g/dL (3.4-5.0); ALBUMIN/GLOBULIN RATIO 0.97; ANION GAP 14.8; BILIRUBIN,TOTAL 0.27 mg/dL (0.00-1.20); BUN/CREATININE RATIO 20.51; CALCIUM 9.3 mg/dL (8.2-10.2); CREATININE 0.78 mg/dL (0.60-1.30); POTASSIUM 3.8 mmol/L (3.5-5.10); TOTAL PROTEIN 6.7 g/dL (5.8-8.1)
--- NOTE | 2017-07-10 14:17 | ED.PDOC ---
General ED Provider: Dr. CONTRERAS ANGEL Chief Complaint: Knee Pain/Injury Stated Complaint: KNEE PAIN AND SORE THROAT Time Seen by Physician: 13:00 Mode of Arrival: Walk-In Information Source: Patient Exam Limitations: No limitations Primary Care Provider: [facility] Nursing and Triage Documentation Reviewed and Agree: Yes Musculoskeletal Complaint Exam - Knee Pain Complaint/Exam Mechanism of Injury: Reports: No known trauma Symptoms Are: Still present Onset of Pain: Reports: Immediate Initial Severity: Mild Current Severity: Mild Location: Reports: Discrete Character: Reports: Aching Alleviating: Reports: Rest Aggravating: Reports: Movement, Weight bearing, Prolonged standing Associated Signs and Symptoms: Denies: Swelling, Redness, Bruising, Fever, Weakness, Numbness, Tingling Able to Bear Weight: Yes Related History: Reports: Similar episode Septic Arthritis Risk Factors: Reports: Extremes of age Gout Risk Factors: Reports: >40 years old, Diabetes, HTN Tenderness: Present: Pre-patellar Concepción Test Positive: No Hudson Test Positive: No Differential Diagnoses: Closed Fracture, Internal Derangement, Sprain, Strain Review of Systems - Review Of Systems Constitutional: Reports: No symptoms Eyes: Reports: No symptoms Ears, Nose, Mouth, Throat: Reports: Throat pain Respiratory: Reports: No symptoms Cardiac: Reports: No symptoms GI: Reports: No symptoms : Reports: No symptoms Musculoskeletal: Reports: Joint pain Skin: Reports: No symptoms Neurological: Reports: No symptoms Endocrine: Reports: No symptoms Hematologic/Lymphatic: Reports: No symptoms All Other Systems: Reviewed and Negative Past Medical History - Past Medical History Endocrine: Reports: DM 2 Cardiovascular: Reports: Hypertension Respiratory: Reports: Bronchitis Hematological: Reports: Anemia Gastrointestinal: Reports: None Genitourinary: Reports: None Neuro/Psych: Reports: None Musculoskeletal: Reports: None Cancer: Reports: None Last Menstrual Period: NA - Surgical History General Surgical History: Reports: Unknown - Family History Family History: Reports: Unknown - Social History Smoking Status: Never smoker Hx Substance Use: No Alcohol Screening: None Physical Exam - Physical Exam Appearance: Well-appearing, No pain distress, Well-nourished Eyes: AUBREY, EOMI, Conjunctiva clear ENT: Ears normal, Nose normal, Oropharynx normal Respiratory: Airway patent, Breath sounds clear, Breath sounds equal, Respirations nonlabored Cardiovascular: RRR, Pulses normal, No rub, No murmur GI/: Soft, Nontender, No masses, Bowel sounds normal, No Organomegaly Musculoskeletal: Normal strength, ROM intact, No edema, No calf tenderness Skin: Warm, Dry, Normal color Neurological: Sensation intact, Motor intact, Reflexes intact, Cranial nerves intact, Alert, Oriented Psychiatric: Affect appropriate, Mood appropriate Interpretation - Radiology Interpretation Radiology Interpretation By: Radiologist Radiology Results: No acute changes Critical Care Note - Critical Care Note Total Time (mins): 0 Course - Course Hematology/Chemistry: 07/10/17 13:35 Orders, Labs, Meds: Lab Review 07/10/17 13:35 WBC 4.02 L RBC 3.72 L Hgb 11.3 L Hct 32.9 L MCV 88.4 MCH 30.4 MCHC 34.3 RDW Coeff of Ranjan 12.9 Plt Count 180 Immature Gran % (Auto) 0.2 Neut % (Auto) 43.3 Lymph % (Auto) 47.0 Talbot % (Auto) 5.0 Eos % (Auto) 4.0 Baso % (Auto) 0.5 Immature Gran # (Auto) 0.0 Neut # 1.7 L Lymph # 1.9 Talbot # 0.2 L Eos # 0.2 Baso # 0.0 Orders Category Date Time Status CBC W/ AUTO DIFF Stat LAB 07/10/17 13:35 Completed COMPREHENSIVE METABOLIC PANEL Stat LAB 07/10/17 13:35 Received MOLECULAR GROUP A STREP Stat LAB 07/10/17 13:42 Results RAPID STREP SCREEN [STREP SCREEN] Stat LAB 07/10/17 13:42 Results KNEE, LEFT 4 VIEWS Stat RADS 07/10/17 13:13 Completed KNEE, RIGHT 4 VIEWS Stat RADS 07/10/17 13:17 Completed Vital Signs: Temp Pulse Resp BP Pulse Ox 07/10/17 13:01 97.4 F L 56 L 18 157/96 H 96 Departure - Departure Time of Disposition: 14:17 (SEEN WITH [facility] ON DISCHARGE INFORMATION GIVEN ANEMIA AND COLOCNSCOPY STRESSED ) Disposition: HOME SELF-CARE Discharge Problem: Knee pain Anemia Qualifiers: Anemia type: unspecified type Qualified Code(s): D64.9 - Anemia, unspecified Instructions: Arthralgia (ED), Knee Pain (ED), Anemia (ED) Condition: Good Pt referred to PMD for follow-up: Yes Additional Instructions: Please call your Family Physician as soon as possible to schedule a follow-up appointment. Allergies/Adverse Reactions: Allergies Penicillins Allergy (Severe, Verified 03/26/16 09:21) Unknown celecoxib [From Celebrex] Allergy (Intermediate, Verified 03/26/16 09:21) Nausea Iodinated Contrast- Oral and IV Dye [Iodinated Contrast Media - IV Dye] Allergy (Verified 03/26/16 09:21) Unknown indomethacin [From Indocin] Adverse Reaction (Verified 03/26/16 09:21) indomethacin sodium [From Indocin] Adverse Reaction (Verified 03/26/16 09:21) Sulfa (Sulfonamide Antibiotics) Adverse Reaction (Verified 07/08/16 12:26) Home Medications: Ambulatory Orders Carbamazepine 50 mg PO DAILY 05/30/14 Carteolol HCl 1 drop OP BID 02/02/15 Baby Aspirin 81 mg PO DAILY 04/03/15 Disposition Discussed With: Patient
== END 2017-07-10 14:40 | disposition home or self-care (01) ==
LOC: ED 12:56
DX: M25.561 Pain in right knee (principal); M25.562 Pain in left knee; J02.9 Acute pharyngitis, unspecified; D64.9 Anemia, unspecified; E11.9 Type 2 diabetes mellitus without complications; I10 Essential (primary) hypertension
CPT/HCPCS: 36415; 80053; 85025; 87651; 87880; 99283

== ENCOUNTER 2017-07-29 10:16 | Outpatient (CLI) | payer OTHER ==
--- NOTE | 2017-07-29 11:55 | US ---
EXAM: Ultrasound abdomen limited right upper quadrant HISTORY: Fatty change of liver, not elsewhere classified COMPARISON: None TECHNIQUE: Limited ultrasound abdomen right upper quadrant was performed FINDINGS: Pancreas poorly visualized secondary to bowel gas shadowing. Liver normal in size. Liver diffusely increased and echogenicity. Main portal vein patent with normal direction of flow. Gallb ladder fluid-filled without gallbladder wall thickening, pericholecystic fluid, or shadowing gallston es. No biliary duct dilation with common bile duct measuring 0.2 cm. Right kidney measures 10.2 cm in length without hydronephrosis. IMPRESSION: Echogenic liver, consistent with hepatic steatosis and/or hepatic parenchymal disease.
== END 2017-07-29 10:17 | disposition home or self-care (01) ==
LOC: RAD 10:16
PROVIDERS: ATTEND Nurse Practitioner Family
DX: K76.0 Fatty (change of) liver, not elsewhere classified (principal)

== ENCOUNTER 2017-08-02 16:20 | Emergency (ER) | payer OTHER ==
[2017-08-02 16:30] VITALS: TEMP 98.1; BMI 24.5
--- NOTE | 2017-08-02 17:07 | ED.PDOC ---
General ED Provider: Dr. MARY MEREDITH Chief Complaint: Dizziness Stated Complaint: Approx 2 hours, patient noticed her heart rate dropped to 47 BPM and she felt cold and shakey. She drank some hot chocolate and her heart improved as did her other symptoms. She feels fine now. Checked her BP & blood sugar after asymptomatic and both were normal. Time Seen by Physician: 17:05 Mode of Arrival: Walk-In Information Source: Patient Exam Limitations: No limitations [facility] Nursing and Triage Documentation Reviewed and Agree: Yes Cardiovascular Complaint Exam - Palpitations Complaint/Exam Onset/Duration: 2 hours ago Symptoms Are: Still present Timing: Constant Initial Severity: Severe Current Severity: None Character: Reports: Slow Aggravating: Reports: Exertion Alleviating: Reports: Rest Associated Signs and Symptoms: Reports: Lightheadedness Related History: Similar episode (several times in past few years. Negative w/u' s by doctor, including holter monitors) Related Surgical History: Reports: None Cardiac Risk Factors: Reports: Hypertension, Diabetes Review of Systems - Review Of Systems Constitutional: Reports: No symptoms, Weakness (now resolved) Eyes: Reports: No symptoms Ears, Nose, Mouth, Throat: Reports: No symptoms Respiratory: Reports: No symptoms Cardiac: Reports: Irregular heart rate (heart rate slowed down - now resolved) GI: Reports: No symptoms : Reports: No symptoms Musculoskeletal: Reports: No symptoms Skin: Reports: No symptoms Neurological: Reports: No symptoms Endocrine: Reports: No symptoms Hematologic/Lymphatic: Reports: No symptoms All Other Systems: Reviewed and Negative Past Medical History - Past Medical History Endocrine: Reports: DM 2 Cardiovascular: Reports: Hypertension Respiratory: Reports: Bronchitis Hematological: Reports: Anemia Gastrointestinal: Reports: None Genitourinary: Reports: None Neuro/Psych: Reports: None Musculoskeletal: Reports: None Cancer: Reports: None Last Menstrual Period: unknown - Surgical History General Surgical History: Reports: Unknown - Family History Family History: Reports: Unknown - Social History Smoking Status: Never smoker Hx Substance Use: No Alcohol Screening: None Lives: Alone - Immunizations Tetanus Shot up to Date: No Influenza Vaccine within 12 Months: No Pneumococcal Vaccine up to Date: No Physical Exam - Physical Exam Appearance: Well-appearing, No pain distress, Well-nourished ENT: Ears normal, Nose normal, Oropharynx normal Neck: Supple Respiratory: Airway patent, Breath sounds clear, Breath sounds equal, Respirations nonlabored Cardiovascular: RRR, Pulses normal, No rub, No murmur GI/: Soft, Nontender, No masses, Bowel sounds normal, No Organomegaly Musculoskeletal: Normal strength, ROM intact, No edema, No calf tenderness Skin: Warm, Dry, Normal color Neurological: Sensation intact, Motor intact, Reflexes intact, Cranial nerves intact, Alert, Oriented Psychiatric: Affect appropriate, Mood appropriate Interpretation - EKG Interpretation Time of EKG #1: 17:31 Rate: [place] (HR 53) Rhythm: Sinus Ectopy: None Brice: NL ST Segment: Normal Interpretation: septal infarct, age undetermined Re-Evaluation - Re-Evaluation Time of Re-Evaluation: 19:00 Status: Unchanged Vital Signs Stable: Yes Pain Level: 0/10 Appearance: NAD Lungs: Clear Skin: Warm and Dry Neuro: Alert and Oriented X3 CV: RRR (HR in 60s to 70s, sinus rhythm on monitor) Additional Comments: Suggested 24 holter monitor, refused it because she's done it 2-3 times Critical Care Note - Critical Care Note Total Time (mins): 0 Course - Course Hematology/Chemistry: 08/02/17 17:25 08/02/17 17:25 Orders, Labs, Meds: Lab Review 08/02/17 08/02/17 08/02/17 17:25 17:25 18:11 WBC 4.80 RBC 3.73 L Hgb 11.1 L Hct 33.1 L MCV 88.7 MCH 29.8 MCHC 33.5 RDW Coeff of Ranjan 13.1 Plt Count 176 Immature Gran % (Auto) 0.4 Neut % (Auto) 45.7 Lymph % (Auto) 45.2 [place] % (Auto) 4.8 Eos % (Auto) 3.5 Baso % (Auto) 0.4 Immature Gran # (Auto) 0.0 Neut # 2.2 Lymph # 2.2 [place] # 0.2 L Eos # 0.2 Baso # 0.0 Sodium 138 Potassium 3.7 Chloride 108 H Carbon Dioxide 24 Anion Gap 9.7 BUN 15 Creatinine 0.84 Estimated GFR (MDRD) 80.00 BUN/Creatinine Ratio 17.85 Glucose 231 H Calcium 9.1 Total Bilirubin 0.30 AST 14 L ALT 15 Alkaline Phosphatase 39 L Total Creatine Kinase 94 Troponin I 0.0100 Total Protein 6.1 Albumin 2.9 L Globulin 3.2 Albumin/Globulin Ratio 0.91 Urine Color Yellow Urine Clarity Clear Urine pH 5.0 Ur Specific [place] 1.015 Urine Protein Negative Urine Glucose (UA) Negative Urine Ketones Negative Urine Blood Negative Urine Nitrite Negative Urine Bilirubin Negative Urine Urobilinogen 0.2 Ur Leukocyte Esterase Negative Orders Category Date Time Status EKG-(ED ONLY) Stat CARDIO 08/02/17 17:17 Completed CBC W/ AUTO DIFF Stat LAB 08/02/17 17:25 Completed CK [CREATINE KINASE] Stat LAB 08/02/17 17:25 Completed COMPREHENSIVE METABOLIC PANEL Stat LAB 08/02/17 17:25 Completed TROPONIN I Stat LAB 08/02/17 17:25 Completed URINALYSIS C & S IF INDICATED Stat LAB 08/02/17 18:11 Completed Vital Signs: Temp Pulse Resp BP Pulse Ox 08/02/17 18:22 62 18 164/70 H 99 08/02/17 16:59 69 18 149/68 H 98 08/02/17 16:20 98.1 F 75 20 169/82 H 96 JOCELINE Risk Score JOCELINE Risk Score: Risk Score Odds of by 30D 0 0.1 (0.1-0.2) 1 0.3 (0.2-0.3) 2 0.4 (0.3-0.5) 3 0.7 (0.6-0.9) 4 1.2 (1.0-1.5) 5 2.2 (1.9-2.6) 6 3.0 (2.5-3.6) 7 4.8 (3.8-6.1) Departure - Departure Time of Disposition: 19:05 Disposition: HOME SELF-CARE Discharge Problem: Symptomatic bradycardia Instructions: Bradycardia (ED) Condition: Good Pt referred to PMD for follow-up: Yes (Follow up with doctor on Friday (in 2 days) for further evaluation ) Additional Instructions: discuss with your doctor trying an ""event monitor" to use when you have symptoms Allergies/Adverse Reactions: Allergies Penicillins Allergy (Severe, Verified 08/02/17 16:32) Unknown celecoxib [From Celebrex] Allergy (Intermediate, Verified 08/02/17 16:32) Nausea Iodinated Contrast- Oral and IV Dye [Iodinated Contrast Media - IV Dye] Allergy (Verified 08/02/17 16:32) Unknown indomethacin [From Indocin] Adverse Reaction (Verified 08/02/17 16:32) indomethacin sodium [From Indocin] Adverse Reaction (Verified 08/02/17 16:32) Sulfa (Sulfonamide Antibiotics) Adverse Reaction (Verified 08/02/17 16:32) Home Medications: Ambulatory Orders Carbamazepine 50 mg PO DAILY 05/30/14 Carteolol HCl 1 drop OP BID 02/02/15 Baby Aspirin 81 mg PO DAILY 04/03/15 Bimatoprost Opth [Lumigan] 1 drop LEFTEYE BEDTIME 08/02/17 Disposition Discussed With: Patient, Family
[2017-08-02 17:32] LABS: BASOPHILS % (AUTO) 0.4 % (0.0-3.0); EOSINOPHILS # (AUTO) 0.2 K/ul (0.0-0.7); EOSINOPHILS % (AUTO) 3.5 % (0.0-7.0); HEMATOCRIT 33.1 % (37.0-47.0); HEMOGLOBIN 11.1 g/dl (12.0-16.0); IMMATURE GRANULOCYTE % (AUTO) 0.4 % (0.0-5.0); LYMPHOCYTES # (AUTO) 2.2 K/uL (0.60-3.4); LYMPHOCYTES % (AUTO) 45.2 (10.0-50.0); MEAN CORPUSCULAR HEMOGLOBIN 29.8 pg (27.0-31.0); MEAN CORPUSCULAR HGB CONC 33.5 (31.8-35.4); MEAN CORPUSCULAR VOLUME 88.7 fl (81.0-99.0); MONOCYTES # (AUTO) 0.2 K/uL (0.4-2.0); MONOCYTES % (AUTO) 4.8 (0-10); NEUTROPHILS # (AUTO) 2.2 K/ul (2.0-6.9); NEUTROPHILS % (AUTO) 45.7; PLATELET COUNT 176 10^3/uL (140-440); RED BLOOD COUNT 3.73 10^6/ul (4.20-5.40)
[2017-08-02 17:58] LABS: ALBUMIN 2.9 g/dL (3.4-5.0); ALBUMIN/GLOBULIN RATIO 0.91; ANION GAP 9.7; BILIRUBIN,TOTAL 0.3 mg/dL (0.00-1.20); BUN/CREATININE RATIO 17.85; CALCIUM 9.1 mg/dL (8.2-10.2); CREATININE 0.84 mg/dL (0.60-1.30); POTASSIUM 3.7 mmol/L (3.5-5.10); TOTAL PROTEIN 6.1 g/dL (5.8-8.1); TROPONIN I 0.01 ng/ml (0.0000-0.4000)
[2017-08-02 18:23] VITALS: BP 164/70
[2017-08-02 18:33] LABS: BILIRUBIN,URINE Negative (NEGATIVE); KETONES,URINE Negative (NEGATIVE); LEUKOCYTE ESTERASE ,URINE Negative (NEGATIVE); NITRITE,URINE Negative (NEGATIVE); PROTEIN,URINE Negative (NEGATIVE); URINE, BLOOD Negative (NEGATIVE)
[2017-08-02 18:48] LABS: ADD URINE MICROSCOPIC NO
== END 2017-08-02 19:15 | disposition home or self-care (01) ==
LOC: ED 16:20
DX: R00.1 Bradycardia, unspecified (principal); R42 Dizziness and giddiness; R53.1 Weakness; E11.9 Type 2 diabetes mellitus without complications; I10 Essential (primary) hypertension; D64.9 Anemia, unspecified; Z79.899 Other long term (current) drug therapy
CPT/HCPCS: 36415; 80053; 81001; 82550; 84484; 85025; 93005; 93010; 99283

== ENCOUNTER 2017-08-18 10:26 | Outpatient (CLI) | payer OTHER ==
--- NOTE | 2017-08-18 14:10 | MRI ---
EXAM: Brain MRI without contrast. HISTORY: Unsteadiness on feet. COMPARISON: Brain MRI 12/09/[address] 03/26/2016. TECHNIQUE: Multiplanar, multisequence MR images were acquired of the brain without contrast. FINDINGS: The midline structures are central and the craniocervical junction is unremarkable. There is mild prominence of the posterior bodies and atria of the lateral ventricle bilaterally and wideni ng of the sulci in the parietal lobe and some posterior frontal sulci. There is mild enlargement of the sylvian fissures bilaterally and enlargement of the subarachnoid space around both cerebellar hem ispheres. There is mild widening of the cerebellar fissures. These findings are compatible with mil d diffuse cerebral and cerebellar volume loss which is greatest involving both parietal lobes and bot h cerebellar hemispheres. The brain parenchyma has no restricted diffusion to suggest acute hypoperfusion or infarction. 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 There are no abnormal foci of dark gradient echo signal. The corpus callosum has a normal configuration. The pituitary gland is unremarkable. There are no intraorbital masses. There has been previous left lens surgery. Hyperostosis frontalis interna is present. The frontal sinus is hypoplastic. There is mild to moderate mucosal thickening in the left anterior and middle ethmoid air cells and mild mucosal thickening in the remaining ethmoids air cells. Mild m ucosal thickening present in both maxillary sinuses with a trace of fluid on the left. There is memb emily thickening in the left mastoid air cells. Flow voids are present in the major intracranial arteries and dural venous sinuses. There is mild thickening of the transverse ligament which effaces the anterior subarachnoid space and may minimally indent the cervical cord without central canal stenosis. IMPRESSION: 1. No intracranial mass, hemorrhage or acute cerebral infarct. 2. Mild diffuse cerebral and cerebellar volume loss which is greatest involving both parietal lobes and both cerebellar hemispheres. 3. 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
== END 2017-08-18 10:27 | disposition home or self-care (01) ==
LOC: RAD 10:26
PROVIDERS: ATTEND Nurse Practitioner Family
DX: R26.81 Unsteadiness on feet (principal); R42 Dizziness and giddiness; R26.0 Ataxic gait

== ENCOUNTER 2017-11-13 09:55 | Outpatient (CLI) | END 2017-11-13 09:56 | disposition home or self-care (01) | LOC: LAB 09:55 | PROVIDERS: ATTEND Nurse Practitioner Family | DX: E11.9 Type 2 diabetes mellitus without complications (principal) | CPT/HCPCS: 36415; 83036 ==

== ENCOUNTER 2018-01-28 08:26 | Outpatient (CLI) | payer OTHER ==
--- NOTE | 2018-01-28 09:39 | DI ---
EXAM: Single contrast esophagram. History: Difficulty swallowing with foreign body feeling in throat. Technique: Patient was given oral barium and multiple spot films of the esophagus and gastroesophage al junction were obtained in various projections. Findings: Tortuous course of the mid esophagus related to the contour of the aortic arch. No esophag eal wall thickening or mucosal lesions identified. No extravasation of contrast material. No strict ures. No hiatal hernia. No gastroesophageal reflux was observed during the course of this examinati on. Patient was given the pill challenge and the pill passed normally into the stomach. Impression: No significant abnormalities
--- NOTE | 2018-01-28 10:03 | MAMMO ---
EXAM: Bilateral digital screening mammogram (2-D and 3-D) History: Screening Comparison: Bilateral mammogram 01/22/2017 Findings: MLO and CC views of bilateral breasts demonstrate scattered fibroglandular breast parenchy ma. CAD was reviewed by the radiologist. Tomosynthesis was performed. Stable benign bilateral vasc ular calcifications. There are no dominant masses, no suspicious microcalcifications and no architec tural distortions Impression: Benign stable mammogram. Recommend followup routine screening mammography in 1 year. BIRADS 2
== END 2018-01-28 08:27 | disposition home or self-care (01) ==
LOC: RAD 08:26
PROVIDERS: ATTEND Nurse Practitioner Family
DX: Z12.31 Encounter for screening mammogram for malignant neoplasm of breast (principal); T17.308A Unspecified foreign body in larynx causing other injury, initial encounter
CPT/HCPCS: 77067

== ENCOUNTER 2018-02-13 10:10 | Outpatient (CLI) | payer OTHER | END 2018-02-13 10:11 | disposition home or self-care (01) | LOC: LAB 10:10 | PROVIDERS: ATTEND Nurse Practitioner Family | DX: E11.9 Type 2 diabetes mellitus without complications (principal); I10 Essential (primary) hypertension; Z79.899 Other long term (current) drug therapy | CPT/HCPCS: 36415; 80053; 80061; 80162; 83036; 84443; 85025 ==

== ENCOUNTER 2018-05-12 10:28 | Outpatient (CLI) | END 2018-05-12 10:29 | disposition home or self-care (01) | LOC: LAB 10:28 | PROVIDERS: ATTEND Nurse Practitioner Family | DX: E11.9 Type 2 diabetes mellitus without complications (principal); E78.5 Hyperlipidemia, unspecified; I10 Essential (primary) hypertension | CPT/HCPCS: 36415; 80053; 80061; 83036; 85025 ==

== ENCOUNTER 2018-11-23 21:00 | Emergency (ER) | payer OTHER ==
[2018-11-23 21:20] VITALS: BP 156/91; TEMP 98.9; BMI 23.6
--- NOTE | 2018-11-23 22:25 | ED.PDOC ---
General ED Provider: Dr. RAE TALAVERA-ER Chief Complaint: Non-specific Complaint Stated Complaint: i got cold--im supposed to do prep for colonoscopy but i started shaking Time Seen by Physician: 21:15 Mode of Arrival: Wheelchair Information Source: Patient Exam Limitations: No limitations Primary Care Provider: TALI TEJEDA Nursing and Triage Documentation Reviewed and Agree: Yes Does patient meet sepsis criteria?: No System Inflammatory Response Syndrome: Not Applicable Sepsis Protocol: For patient's 13 years and over: Temp is 96.8 and below OR 101 and greater Pulse >90 BPM Resp >20/minute Acutely Altered Mental Status Are patient's symptoms suggestive of a new infection, such as: -Pneumonia -Skin, Soft Tissue -Endocarditis -UTI -Bone, Joint Infection -Implantable Device -Acute Abdominal Infection -Wound Infection -Meningitis -Blood Stream Catheter Infection -Unknown Miscellaneous Complaint Exam - Complex/Multi-System Complaint/Exam Onset/Duration: toniught Symptoms Are: Resolved Initial Severity: Mild Current Severity: Mild Associated Signs and Symptoms: Denies: Decreased responsiveness, Confusion, Agitation, Dizziness, Weakness, Syncope, Headache, Short of air, Cough, Wheezing , Hemoptysis, Chest pain, Palpitations, Edema, Nausea, Vomiting, Diarrhea, Abdominal pain, Back pain, Dysuria, Hematemesis, Melena, Decreased oral intake, Fever, Diaphoresis, Immunocompromised, Anticoagulation Therapy, Recent medication changes, Indwelling medical malpractice paralegal, Prior MRSA, Prior VRE, Recent trauma, Remote trauma JVD Present: No Tachypnea Present: No Stridor Present: No Abdominal Findings: Present: Normal findings Meningeal Signs Positive: No Focal Weakness: Present: None Focal Sensory Loss: Present: None Gait: Normal Gag Reflex Present: Yes Babinski Sign: Negative Right, Negative Left Skin Findings: Present: Normal findings Joint Swelling Present: No In-Dwelling Device Present: No Differential Diagnosis: Metabolic Abnormality, UTI Review of Systems - Review Of Systems Constitutional: Reports: No symptoms Eyes: Reports: No symptoms Ears, Nose, Mouth, Throat: Reports: No symptoms Respiratory: Reports: No symptoms Cardiac: Reports: No symptoms GI: Reports: No symptoms : Reports: No symptoms Musculoskeletal: Reports: No symptoms Skin: Reports: No symptoms Neurological: Reports: No symptoms Endocrine: Reports: No symptoms Hematologic/Lymphatic: Reports: No symptoms All Other Systems: Reviewed and Negative Past Medical History - Past Medical History Previously Healthy: No Endocrine: Reports: DM 2 Cardiovascular: Reports: Hypertension Respiratory: Reports: Bronchitis Hematological: Reports: Anemia Gastrointestinal: Reports: None Genitourinary: Reports: None Neuro/Psych: Reports: None Musculoskeletal: Reports: None Cancer: Reports: None Last Menstrual Period: PT HAS HAD A HYSTERECTOMY - Surgical History General Surgical History: Reports: Unknown - Family History Family History: Reports: Unknown - Social History Smoking Status: Never smoker Hx Substance Use: No Alcohol Screening: None - Immunizations Tetanus Shot up to Date: (UNKNOWN) Influenza Vaccine within 12 Months: No Pneumococcal Vaccine up to Date: No Physical Exam - Physical Exam Appearance: Well-appearing, No pain distress, Well-nourished Eyes: AUBREY, EOMI, Conjunctiva clear ENT: Ears normal, Nose normal, Oropharynx normal Neck: Supple Respiratory: Airway patent, Breath sounds clear, Breath sounds equal, Respirations nonlabored Cardiovascular: RRR, Pulses normal, No rub, No murmur GI/: Soft, Nontender, No masses, Bowel sounds normal, No Organomegaly Musculoskeletal: Normal strength, ROM intact, No edema, No calf tenderness Skin: Warm, Dry, Normal color Neurological: Sensation intact, Motor intact, Reflexes intact, Cranial nerves intact, Alert, Oriented Psychiatric: Affect appropriate, Mood appropriate Critical Care Note - Critical Care Note Total Time (mins): 0 Course - Course Hematology/Chemistry: 11/23/18 21:32 11/23/18 21:32 Orders, Labs, Meds: Lab Review 11/23/18 11/23/18 11/23/18 21:32 21:32 22:00 WBC 4.67 RBC 4.24 Hgb 12.8 Hct 38.7 MCV 91.3 MCH 30.2 MCHC 33.1 RDW Coeff of Ranjan 12.9 Plt Count 220 Immature Gran % (Auto) 0.4 Neut % (Auto) 44.6 Lymph % (Auto) 46.7 [place] % (Auto) 6.2 Eos % (Auto) 1.7 Baso % (Auto) 0.4 Immature Gran # (Auto) 0.0 Neut # (Auto) 2.1 Lymph # (Auto) 2.2 [place] # (Auto) 0.3 L Eos # (Auto) 0.1 Baso # (Auto) 0.0 Sodium 142.1 Potassium 3.62 Chloride 103.5 Carbon Dioxide 28.7 Anion Gap 13.52 BUN 13.2 Creatinine 0.81 Estimated GFR (MDRD) 83.00 BUN/Creatinine Ratio 16.29 Glucose 139.2 H Calcium 9.89 Urine Color Yellow Urine Clarity Clear Urine pH 5.0 Ur Specific [place] <=1.005 Urine Protein Negative Urine Glucose (UA) Negative Urine Ketones Negative Urine Blood Trace-lysed Urine Nitrite Negative Urine Bilirubin Negative Urine Urobilinogen 0.2 Ur Leukocyte Esterase Negative Urine Microscopic RBC 0-2 Ur Squamous Epith Cells 0-2 Orders Category Date Time Status BASIC METABOLIC PANEL Stat LAB 11/23/18 21:32 Completed CBC W/ AUTO DIFF Stat LAB 11/23/18 21:32 Completed UA [URINALYSIS C & S IF INDICATED] Stat LAB 11/23/18 22:00 Completed Vital Signs: Temp Pulse Resp BP Pulse Ox 11/23/18 21:01 98.9 F 91 H 20 156/91 H 95 Departure - Departure Time of Disposition: 22:24 Disposition: HOME SELF-CARE Discharge Problem: General symptom Instructions: Colonoscopy (DC) Condition: Good Pt referred to PMD for follow-up: Yes IPMP verified?: No Additional Instructions: f/u with gi as scheduled Allergies/Adverse Reactions: Allergies Penicillins Allergy (Severe, Verified 11/23/18 21:17) Unknown celecoxib [From Celebrex] Allergy (Intermediate, Verified 11/23/18 21:17) Nausea Iodinated Contrast- Oral and IV Dye [Iodinated Contrast Media - IV Dye] Allergy (Verified 11/23/18 21:17) Unknown indomethacin [From Indocin] Adverse Reaction (Verified 11/23/18 21:17) indomethacin sodium [From Indocin] Adverse Reaction (Verified 11/23/18 21:17) Sulfa (Sulfonamide Antibiotics) Adverse Reaction (Verified 11/23/18 21:17) Home Medications: Ambulatory Orders Carbamazepine 50 mg PO DAILY 05/30/14 Carteolol HCl 1 drop OP BID 02/02/15 Baby Aspirin 81 mg PO DAILY 04/03/15 Bimatoprost Opth [Lumigan] 1 drop LEFTEYE BEDTIME 08/02/17 Disposition Discussed With: Patient
== END 2018-11-23 23:00 | disposition home or self-care (01) ==
LOC: ED 21:00
DX: R68.89 Other general symptoms and signs (principal); E11.9 Type 2 diabetes mellitus without complications; I10 Essential (primary) hypertension
CPT/HCPCS: 36415; 80048; 81001; 85025; 99283

== ENCOUNTER 2019-01-14 15:15 | Emergency (ER) ==
[2019-01-14 15:36] VITALS: BP 138/84; TEMP 99.8; BMI 24.2
--- NOTE | 2019-01-14 16:23 | ED.PDOC ---
General ED Provider: Dr. YADIRA CROUCH Chief Complaint: GI Bleed Stated Complaint: Constipated; tried to digitally work it out - had some bleeding. Single episode; not continuing at this time. Time Seen by Physician: 16:15 Mode of Arrival: Wheelchair Information Source: Patient Exam Limitations: No limitations Primary Care Provider: TALI TEJEDA Nursing and Triage Documentation Reviewed and Agree: Yes Does patient meet sepsis criteria?: No System Inflammatory Response Syndrome: Not Applicable Sepsis Protocol: For patient's 13 years and over: Temp is 96.8 and below OR 101 and greater Pulse >90 BPM Resp >20/minute Acutely Altered Mental Status Are patient's symptoms suggestive of a new infection, such as: -Pneumonia -Skin, Soft Tissue -Endocarditis -UTI -Bone, Joint Infection -Implantable Device -Acute Abdominal Infection -Wound Infection -Meningitis -Blood Stream Catheter Infection -Unknown Review of Systems - Review Of Systems Constitutional: Reports: No symptoms GI: Reports: Rectal bleeding (1 X episode today) Musculoskeletal: Reports: No symptoms Skin: Reports: No symptoms All Other Systems: Reviewed and Negative Past Medical History - Past Medical History Previously Healthy: No Endocrine: Reports: DM 2 Cardiovascular: Reports: Hypertension Respiratory: Reports: Bronchitis Hematological: Reports: Anemia Gastrointestinal: Reports: None Genitourinary: Reports: None Neuro/Psych: Reports: None Musculoskeletal: Reports: None Cancer: Reports: None Last Menstrual Period: unknown - Surgical History General Surgical History: Reports: Unknown - Family History Family History: Reports: Unknown - Social History Smoking Status: Never smoker Hx Substance Use: No Alcohol Screening: None - Immunizations Influenza Vaccine within 12 Months: No Pneumococcal Vaccine up to Date: No Physical Exam - Physical Exam Appearance: Well-appearing Respiratory: Airway patent, Breath sounds clear, Breath sounds equal, Respirations nonlabored Cardiovascular: RRR, Pulses normal GI/: Soft, Nontender Musculoskeletal: Normal strength, ROM intact Skin: Warm, Dry, Normal color Neurological: Alert, Oriented Psychiatric: Affect appropriate, Mood appropriate Critical Care Note - Critical Care Note Total Time (mins): 10 Course - Course Orders, Labs, Meds: Lab Review 01/14/19 16:25 Stl Occult Blood (IFOB) Positive Stool Occult Blood #2 No specimen received Stool Occult Blood #3 No specimen received Orders Category Date Time Status HEMOCCULT [OCCULT BLOOD, STOOL] Stat LAB 01/14/19 16:25 Completed Vital Signs: Temp Pulse Resp BP Pulse Ox 01/14/19 15:26 99.8 F H 98 H 20 138/84 92 L Departure - Departure Time of Disposition: 17:20 Disposition: HOME SELF-CARE Discharge Problem: Rectal bleed Instructions: Rectal Bleeding (ED) Condition: Stable Pt referred to PMD for follow-up: Yes (Call for appointment) IPMP verified?: No (N/A) Additional Instructions: Follow up with primary care provider; call office tomorrow Allergies/Adverse Reactions: Allergies Penicillins Allergy (Severe, Verified 11/23/18 21:17) Unknown celecoxib [From Celebrex] Allergy (Intermediate, Verified 11/23/18 21:17) Nausea Iodinated Contrast- Oral and IV Dye [Iodinated Contrast Media - IV Dye] Allergy (Verified 11/23/18 21:17) Unknown indomethacin [From Indocin] Adverse Reaction (Verified 11/23/18 21:17) indomethacin sodium [From Indocin] Adverse Reaction (Verified 11/23/18 21:17) Sulfa (Sulfonamide Antibiotics) Adverse Reaction (Verified 11/23/18 21:17) Home Medications: Ambulatory Orders Carbamazepine 50 mg PO DAILY 05/30/14 Carteolol HCl 1 drop OP BID 02/02/15 Baby Aspirin 81 mg PO DAILY 04/03/15 Bimatoprost Opth [Lumigan] 1 drop LEFTEYE BEDTIME 08/02/17 Disposition Discussed With: Patient (and )
== END 2019-01-14 17:28 | disposition home or self-care (01) ==
LOC: ED 15:15
DX: K62.5 Hemorrhage of anus and rectum (principal)
CPT/HCPCS: 82272; 99283

== ENCOUNTER 2019-01-19 11:15 | Outpatient (CLI) | payer OTHER | END 2019-01-19 11:16 | disposition home or self-care (01) | LOC: RHC-LAB 11:15 → FCC-LAB 11:16 | PROVIDERS: ATTEND Nurse Practitioner Family | DX: E11.9 Type 2 diabetes mellitus without complications (principal) | CPT/HCPCS: 36415; 83037 ==

== ENCOUNTER 2019-02-02 09:50 | Outpatient (CLI) | payer OTHER ==
--- NOTE | 2019-02-03 11:19 | MAMMO ---
EXAM: Digital screening mammogram with tomosynthesis HISTORY: Screening COMPARISON: 01/28/2018 FINDINGS: Digital MLO and CC views of the right and left breast were performed. Tomosynthesis was performed. Computer aided detection utilized.. There are scattered fibroglandular densities. There is no evidence for mass, asymmetry, distortion, or suspicious calcifications in either breast. IMPRESSION: 1. No evidence of malignancy in the right or left breast. 2. Annual screening mammogram is recommended in one year. BIRADS category 1, negative examination
== END 2019-02-02 09:51 | disposition home or self-care (01) ==
LOC: RAD 09:50
PROVIDERS: ATTEND Nurse Practitioner Family
DX: Z12.31 Encounter for screening mammogram for malignant neoplasm of breast (principal)

== ENCOUNTER 2019-06-17 13:36 | Outpatient (CLI) | payer OTHER ==
--- NOTE | 2019-06-17 15:14 | US ---
EXAM: Thyroid ultrasound History: Follow-up thyroid nodules. Comparison: Thyroid ultrasound 07/04/2016 Technique: Multiple sonographic images through the thyroid gland were obtained. Color duplex Dopple r was used to interrogate vascular flow. Findings: The right lobe of the thyroid measures 4.0 cm x 1.3 cm x 1.3 cm and demonstrates several sub-centimet er nodules with the largest measuring 7 mm not significantly changed compared to the prior study. The thyroid isthmus measures 0.3 cm in thickness. The left lobe of the thyroid measures 3.9 cm x 1.2 cm x 1.6 cm and is without discrete nodule identif ied. No extrathyroidal masses identified. The thyroid gland is not hypervascular. Impression: No significant interval change in the benign appearing sub-centimeter right thyroid nodu les.
== END 2019-06-17 13:37 | disposition home or self-care (01) ==
LOC: RAD 13:36
PROVIDERS: ATTEND Nurse Practitioner Family
DX: E04.1 Nontoxic single thyroid nodule (principal); M54.2 Cervicalgia

== ENCOUNTER 2025-07-19 08:30 | Observation (INO) ==
--- NOTE | 2025-07-19 09:07 | ED.PDOC ---
General <LANE ANDERSON MD - Last Filed: 07/19/25 09:07> [facility] ED Provider: Dr. LANE ANDERSON MD Chief Complaint: Abdominal Pain Stated Complaint: 85 yo BF with R side abdominal pain for several hours, persistent but non-radiating. Made her very nauseated but no vomiting. Difficult for her to describe the pain. Doesn't get much abdominal pain. No fever. No back pain. No dysuria or hematuria but voiding more than usual. No chest pain or SOB. RN reported that she had jamarcus and appendectomy. Hx of HTN, DM. Resides with her son and uses a walker to get around Time Seen by Provider: 07/19/25 08:51 Mode of Arrival: Ambulance Information Source: Patient Exam Limitations: Clinical condition Primary Care Provider: SORIN HUBBARD APRN Referred to ED by: Other (self) Nursing and Triage Documentation Reviewed and Agree: Yes Opioid Naive vs. Tolerant Does Patient Take Opioids?: No What is Opioid Naive?: *Opioid Naive implies the patient is not already taking opioids or not chronically receiving opioids on a daily basis. *PRN dosing is not "usually" associated with tolerance. *Patients are at higher risk of over-sedation and aspiration. What is Opioid Tolerant?: *Opioid Tolerance implies less than the expected response to an opioid. *Acquired tolerance is defined by the patient taking 60mg of oral morphine daily (or equianalgesic dose of another opioid) for 1 week or more. *Often associated with chronic pain. *May take more than usual dose to achieve desired pain control. 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 Pain in both legs. ); Denies Back pain Skin: Reports Change in color Neurological: Denies Emotional problems, Cognitive dysfunction or Headache PFS <LANE ANDERSON MD - Last Filed: 07/19/25 09:07> [facility] [place] Medical History Hypertension for years I10 - Essential (primary) hypertension (ICD-10) Acute angina for years I20.9 - Angina pectoris, unspecified (ICD-10) Social History Smoking and tobacco status: Never smoker Second hand smoke exposure: Yes Alcohol intake: never Substance use type: does not use Sophia/alevism: Amish Special sophia needs: No Adopted: No Caregiver/support person: Yes (son) Household members: family Housing: house Lives independently: No Financial difficulty paying for basics: not applicable long term: No Current occupational status: retired Pets and animals: Yes Leisure activites: other History of recent travel: No Sexually active: No Do you think of yourself as: straight/heterosexual Current gender identity: female Seatbelt use: always Helmet use: No (N/A) Drives intoxicated or rides with intoxicated warehouse associate driver: No Water heater temperature set < 120 degrees: Yes Working smoke detector in home: Yes Fire extinguisher in home: Yes Carbon monoxide detector in home: Yes Firearms in home: No Surgical History History of tubal ligation age 18 Z98.51 - Tubal ligation status (ICD-10) Status post hysterectomy 1074 Z90.710 - Acquired absence of both cervix and uterus (ICD-10) Status post appendectomy age 17 Z90.49 - Acquired absence of other specified parts of digestive tract (ICD- 10) Female Reproductive History Menstrual Hx Hysterectomy: Yes Hx Tubal Ligation: No Physical Exam <LANE ANDERSON MD - Last Filed: 07/19/25 09:07> Physical Exam Appearance: Reports Well-nourished Ill-appearing: Mild Pain Distress: Mild Eyes: Reports EOMI and Other (R corneal cloudy, old) ENT: Reports Nose normal and Oropharynx normal Neck: Supple Respiratory: Reports Airway patent and Respirations nonlabored; Denies Wheezes or Retractions Cardiovascular: Reports RRR, Pulses normal and No rub GI/: Reports Soft, Nontender, No masses and Bowel sounds normal; Denies Tender Musculoskeletal: Reports Normal strength, ROM intact, Limited ROM and Other (Charcot joint, especially L knee. Some edema, more so on RLE) Skin: Reports Warm and Dry Neurological: Reports Sensation intact and Motor intact Psychiatric: Reports Affect appropriate and Mood appropriate Interpretation <MATT MCGINNIS DO - Last Filed: 07/19/25 11:46> EKG Interpretation EKG Interpretation By: ED Physician Time of EKG #1: 11:32 Rate: Normal (71) Rhythm: Sinus (First-degree block) Ectopy: None [place]: Left ST Segment: Normal Interpretation: Less than [address] depression laterally with T wave inversion. MA 224 Re-Evaluation <MATT MCGINNIS DO - Last Filed: 07/19/25 11:46> Re-Evaluation Additional Comments: Dr. Mcginnis: I received signout of this patient from the overnight physician. Patient arrived with abdominal pain. For the last several hours with my shift, she had a CT that was pending that showed no acute findings although limited exam. I reviewed her laboratory workup. The patient was found to be hypokalemic. Try to replete 40 mEq with liquid potassium chloride, the patient was unable to get the first half of it down and started to spit it out and refuse it. She did state that she would prefer a pill. Given the amount of potassium that she may need, I elected oral routes as opposed to IV to avoid any discomfort. Due to the patient's age however, in the hypokalemia, will review an EKG and have discussed case with the hospitalist service that pending the EKG, admit for observation and correction of her hypokalemia Course <LANE ANDERSON MD - Last Filed: 07/19/25 09:07> Course 07/19/25 09:07 07/19/25 09:07 Orders, Labs, Meds: Lab Review 07/19/25 07/19/25 09:07 09:20 WBC 4.64 RBC 3.82 L Hgb 11.6 L Hct 36.7 L MCV 96.1 MCH 30.4 MCHC 31.6 L RDW Coeff of Ranjan 13.6 Plt Count 193 Immature Gran % (Auto) 0.2 Neut % (Auto) 82.6 H Lymph % (Auto) 14.0 Kleberg % (Auto) 2.8 Eos % (Auto) 0.0 Baso % (Auto) 0.4 Neut # (Auto) 3.8 Lymph # (Auto) 0.7 Kleberg # (Auto) 0.1 L Eos # (Auto) 0.0 Baso # (Auto) 0.0 Immature Gran # (Auto) 0.0 Sodium 139.9 Potassium 2.91 L Chloride 102.6 Carbon Dioxide 33.5 H Anion Gap 6.71 BUN 18.5 H Creatinine 0.58 L Estimated GFR (MDRD) 120.00 BUN/Creatinine Ratio 31.89 Glucose 192.1 H Lactic Acid 1.23 Calcium 9.03 Total Bilirubin 0.76 AST 37.8 H ALT 19.8 Alkaline Phosphatase 55.7 Total Protein 7.64 Albumin 4.20 Globulin 3.44 Albumin/Globulin Ratio 1.22 Lipase 52.2 Urine Color Yellow Urine Clarity Clear Urine pH 7.0 Ur Specific Stafford 1.025 Urine Protein 2+ H Urine Glucose (UA) Trace H Urine Ketones 1+ H Urine Blood 2+ H Urine Nitrite Negative Urine Bilirubin Negative Urine Urobilinogen 1.0 H Ur Leukocyte Esterase Negative Urine Microscopic RBC 10-20 Ur Squamous Epith Cells 0-2 Orders Category Date Time Status ADMIT OBSERVATION [PLACE PATIENT OBSERVATION] .TO ADMISSION 07/19/25 11:34 Active MEDSURG (MONITORED BED) EKG-(ED & IP/OBS ONLY) Stat CARDIO 07/19/25 11:27 Ordered TELEMETRY MONITORING TELE CARE 07/19/25 11:34 Active Saline Lock [ED IV/MEDIPORT/POWERPORT] .ONCE EMERGENCY 07/19/25 08:58 Active CBC W/ AUTO DIFF Stat LAB 07/19/25 09:07 Completed CMP [COMPREHENSIVE METABOLIC PANEL] Stat LAB 07/19/25 09:07 Completed LACTIC ACID Stat LAB 07/19/25 09:07 Completed LIPASE Stat LAB 07/19/25 09:07 Completed URINALYSIS C & S IF INDICATED Stat LAB 07/19/25 09:20 Completed 0.9 % Sodium Chloride [Saline Flush] Meds 07/19/25 08:58 Active 1 syr IVF PRN PRN Ondansetron HCl/Pf [Zofran Sdv] Meds 07/19/25 09:07 Discontinued 4 mg IVP ONCE ONE Potassium Chloride [K-Dur] Meds 07/19/25 11:26 Discontinued 40 meq PO ONCE STA Potassium Chloride [Potassium Chl 10% Oral Mitzy] Meds 07/19/25 10:42 Discontinued 40 meq PO ONCE STA Sodium Chloride 0.9% [Sodium Chloride] 1,000 ml Meds 07/19/25 08:58 Active IV 100 mls/hr CT ABDOMEN/PELVIS WO CONTRAST Stat RADS 07/19/25 09:07 Completed US VENOUS SCAN RT LEG [U/S VENOUS SCAN RT LEG] Stat RADS 07/19/25 08:58 Completed Medications Generic Name Dose Route Start Last Admin Trade Name Freq PRN Reason Stop Dose Admin Sodium Chloride 1,000 mls @ 100 mls/hr 07/19/25 08:58 07/19/25 10:07 Sodium Chloride IV 07/19/25 18:57 100 mls/hr .Q10H ONE Administration Sodium Chloride 1 syr 07/19/25 08:58 0.9% Sodium Chloride 10 Ml Disp.Syrin IVF PRN PRN To flush IV Discontinued Medications Generic Name Dose Route Start Last Admin Trade Name Freq PRN Reason Stop Dose Admin Ondansetron HCl 4 mg 07/19/25 09:07 07/19/25 10:05 Ondansetron Hcl/Pf 4 Mg/2 Ml Sdv IVP 07/19/25 09:08 4 mg ONCE ONE Administration Potassium Chloride 40 meq 07/19/25 10:42 07/19/25 11:14 Potassium Chloride 40 Meq/30 Ml Cup PO 07/19/25 10:43 40 meq ONCE STA Administration Potassium Chloride 40 meq 07/19/25 11:26 Potassium Chloride 20 Meq Tab PO 07/19/25 11:27 ONCE STA Vital Signs: Temp Pulse Resp BP Pulse Ox 07/19/25 08:37 98.4 F 72 20 209/100 H 97 <MATT MCGINNIS, - Last Filed: 07/19/25 11:46> Course Orders, Labs, Meds: Lab Review 07/19/25 07/19/25 09:07 09:20 WBC 4.64 RBC 3.82 L Hgb 11.6 L Hct 36.7 L MCV 96.1 MCH 30.4 MCHC 31.6 L RDW Coeff of Ranjan 13.6 Plt Count 193 Immature Gran % (Auto) 0.2 Neut % (Auto) 82.6 H Lymph % (Auto) 14.0 Kleberg % (Auto) 2.8 Eos % (Auto) 0.0 Baso % (Auto) 0.4 Neut # (Auto) 3.8 Lymph # (Auto) 0.7 Kleberg # (Auto) 0.1 L Eos # (Auto) 0.0 Baso # (Auto) 0.0 Immature Gran # (Auto) 0.0 Sodium 139.9 Potassium 2.91 L Chloride 102.6 Carbon Dioxide 33.5 H Anion Gap 6.71 BUN 18.5 H Creatinine 0.58 L Estimated GFR (MDRD) 120.00 BUN/Creatinine Ratio 31.89 Glucose 192.1 H Lactic Acid 1.23 Calcium 9.03 Total Bilirubin 0.76 AST 37.8 H ALT 19.8 Alkaline Phosphatase 55.7 Total Protein 7.64 Albumin 4.20 Globulin 3.44 Albumin/Globulin Ratio 1.22 Lipase 52.2 Urine Color Yellow Urine Clarity Clear Urine pH 7.0 Ur Specific Stafford 1.025 Urine Protein 2+ H Urine Glucose (UA) Trace H Urine Ketones 1+ H Urine Blood 2+ H Urine Nitrite Negative Urine Bilirubin Negative Urine Urobilinogen 1.0 H Ur Leukocyte Esterase Negative Urine Microscopic RBC 10-20 Ur Squamous Epith Cells 0-2 Orders Category Date Time Status ADMIT OBSERVATION [PLACE PATIENT OBSERVATION] .TO ADMISSION 07/19/25 11:34 Active MEDSURG (MONITORED BED) EKG-(ED & IP/OBS ONLY) Stat CARDIO 07/19/25 11:27 Ordered TELEMETRY MONITORING TELE CARE 07/19/25 11:34 Active Saline Lock [ED IV/MEDIPORT/POWERPORT] .ONCE EMERGENCY 07/19/25 08:58 Active CBC W/ AUTO DIFF Stat LAB 07/19/25 09:07 Completed CMP [COMPREHENSIVE METABOLIC PANEL] Stat LAB 07/19/25 09:07 Completed LACTIC ACID Stat LAB 07/19/25 09:07 Completed LIPASE Stat LAB 07/19/25 09:07 Completed URINALYSIS C & S IF INDICATED Stat LAB 07/19/25 09:20 Completed 0.9 % Sodium Chloride [Saline Flush] Meds 07/19/25 08:58 Active 1 syr IVF PRN PRN Ondansetron HCl/Pf [Zofran Sdv] Meds 07/19/25 09:07 Discontinued 4 mg IVP ONCE ONE Potassium Chloride [K-Dur] Meds 07/19/25 11:26 Discontinued 40 meq PO ONCE STA Potassium Chloride [Potassium Chl 10% Oral Mitzy] Meds 07/19/25 10:42 Discontinued 40 meq PO ONCE STA Sodium Chloride 0.9% [Sodium Chloride] 1,000 ml Meds 07/19/25 08:58 Active IV 100 mls/hr CT ABDOMEN/PELVIS WO CONTRAST Stat RADS 07/19/25 09:07 Completed US VENOUS SCAN RT LEG [U/S VENOUS SCAN RT LEG] Stat RADS 07/19/25 08:58 Completed Medications Generic Name Dose Route Start Last Admin Trade Name Freq PRN Reason Stop Dose Admin Sodium Chloride 1,000 mls @ 100 mls/hr 07/19/25 08:58 07/19/25 10:07 Sodium Chloride IV 07/19/25 18:57 100 mls/hr .Q10H ONE Administration Sodium Chloride 1 syr 07/19/25 08:58 0.9% Sodium Chloride 10 Ml Disp.Syrin IVF PRN PRN To flush IV Discontinued Medications Generic Name Dose Route Start Last Admin Trade Name Freq PRN Reason Stop Dose Admin Ondansetron HCl 4 mg 07/19/25 09:07 07/19/25 10:05 Ondansetron Hcl/Pf 4 Mg/2 Ml Sdv IVP 07/19/25 09:08 4 mg ONCE ONE Administration Potassium Chloride 40 meq 07/19/25 10:42 07/19/25 11:14 Potassium Chloride 40 Meq/30 Ml Cup PO 07/19/25 10:43 40 meq ONCE STA Administration Potassium Chloride 40 meq 07/19/25 11:26 Potassium Chloride 20 Meq Tab PO 07/19/25 11:27 ONCE STA Vital Signs: Temp Pulse Resp BP Pulse Ox 07/19/25 08:37 98.4 F 72 20 209/100 H 97 Discharge Plan Discharge Patient Disposition: PLACED OBSERVATION Discharge Problem: Acute hypokalemia, Abdominal pain Did you review [place] DEPUTY SHERIFF/INVESTIGATOR for ALL controlled substances?: Not Applicable ED Provider: LANE ANDERSON Condition: Stable
[2025-07-19 09:11] LABS: IMMATURE GRANULOCYTE # (AUTO) 0.0 (0.0-1.0); IMMATURE GRANULOCYTE % (AUTO) 0.2 % (0.0-5.0); RDW COEFFICIENT OF VARIATION 13.6 % (11.6-14.8)
[2025-07-19 09:24] LABS: CREATININE 0.58 mg/dL (0.60-1.30)
[2025-07-19 09:35] LABS: GLUCOSE, URINE (UA) Trace (NEGATIVE); LEUKOCYTE ESTERASE ,URINE Negative (NEGATIVE); URINE, BLOOD 2+ (NEGATIVE)
--- NOTE | 2025-07-19 09:57 | US ---
EXAM: RIGHT LOWER EXTREMITY DEEP VENOUS ULTRASOUND WITH DOPPLER IMAGING HISTORY: Right leg pain and swelling. TECHNIQUE: Hidalgo-scale ultrasound with compression maneuvers and color and spectral Doppler ultrasound at rest and with augmentation of the veins was performed. Images were obtained and stored in a permanent archive. COMPARISON: None. FINDINGS: RIGHT LOWER EXTREMITY: The deep veins of the lower extremity were evaluated from the level of the common femoral vein proximally, through the level of the posterior tibial vein distally. All segments show normal compressibility and augmentation, and normal color flow. There is no evidence of intraluminal thrombosis. Greater saphenous vein is patent. Other: There is soft tissue edema. IMPRESSION: 1. No deep venous thrombosis (DVT) in the right lower extremity. *Note: Anticoagulation for SVT can be considered only if greater than or equal to 5 cm in length. ([email or web address].[email or web address]/[email or web address]/[id number])
[2025-07-19 10:04] LABS: SQUAMOUS EPITHELIAL CELL,UR 0-2 (0-5)
[2025-07-19] MEDS: ZOFRAN SDV IVP ONE (10:05)
[2025-07-19] MEDS: SODIUM CHLORIDE 1,000 ML IV ONE (10:07)
--- NOTE | 2025-07-19 10:13 | CT ---
CT ABDOMEN AND PELVIS WITHOUT CONTRAST INDICATION: 85-year-old female patient with right-sided abdominal pain COMPARISON: CT abdomen pelvis 10/17/2021 TECHNIQUE: Axial CT from the lung bases to the proximal femurs without intravenous contrast administration. Coronal and sagittal reformatted images were performed. One or more of the following dose reduction techniques were used: Automated exposure control, adjustment of the mA and/or kV according to p atient size, use of iterative reconstruction technique. IV Contrast: None. Oral Contrast: None. FINDINGS: Evaluation of the vasculature and solid viscera is limited without intravenous contrast. Exam is limited to a moderate degree by motion artifact artifact from the patient's upper extremities and external support devices in the field of view the patient's lack of intraabdominal fat. Evaluation of the g astrointestinal tract is limited without intraluminal contrast. The lung bases are grossly clear. Multiple coronary artery calcification severe. Mild cardiomegaly. No pericardial or pleural effusions. Gallbladder biliary tract are grossly unremarkable. Liver spleen pancreas adrenal glands are grossly u nremarkable. Extrarenal pelvis bilaterally. Pelvic phleboliths. No obvious large nephrolithiasis. No hydronephrosis or hydroureter. No intraperitoneal fluid or pneumoperitoneum. No small bowel obstruction. The appendix is not able to be confidently identified and the form a diagnosis of acute appendicitis cannot be confidently included nor excluded on the basis of this exam. Spondylosis and osteoarthrosis. IMPRESSION: Quite limited exam with no definite acute intra-abdominal process. All CT scans are performed using dose optimization techniques as appropriate to the performed exam and include at least one of the following: Automated exposure control, adjustment of the mA and/or kV according to size, and the use of iterative reconstruction technique.
[2025-07-19] MEDS: POTASSIUM CHL 10% ORAL SOL PO STA (11:14)
--- NOTE | 2025-07-19 12:06 | PCM ---
Date of Service Date Seen by Provider: 07/19/25 Time Seen by Provider: 12:30 Admit Day/Time Admission Date: 07/19/25 Admission Time: 11:34 Reason for Admission Chief Complaint: HYPOKALEMIA Hospital Provider Hospital Provider: Mera Miller PA-C, [facility] [place] [facility] Primary Care Physician: SORIN HUBBARD APRN History of Present Illness History of Present Illness: Patient is a 85 year old female from home with pmhx of DMt2, hyperlipidemia, hypertension, diabetic neuropathy, vitamin d deficiency, graves disease, who presents for abdominal pain. She is unclear on how long it's been going on. She points to her right central abdomen. Denies n/v/d. States she took an trudy seltzer but it didn't help. She states it currently no longer hurts. Denies chest pain or sob. In ER ct a/p was negative for acute findings but limited visualization. Venous US was done due to RLE swelling compared to left and was negative for DVT. Patient was found to have potassium of 2.9. She is frail, and from home. Will admit to [facility] for hypokalemia. Mag also 1.6. BP noted to be >200 systolic. Pt states she hasn't had her medications today. Case Discussed With Case Discussed With: Patient's case was discussed with the ER Physicians, Dr. Ga. [facility] Medical History Hypertension for years I10 - Essential (primary) hypertension (ICD-10) Acute angina for years I20.9 - Angina pectoris, unspecified (ICD-10) Surgical History History of tubal ligation age 18 Z98.51 - Tubal ligation status (ICD-10) Status post hysterectomy [age] Z90.710 - Acquired absence of both cervix and uterus (ICD-10) Status post appendectomy age 17 Z90.49 - Acquired absence of other specified parts of digestive tract (ICD- 10) Family History (Updated 07/19/25 @ 13:51 by MARIA D KINGSLEY RN) Other No known health problems Social History Smoking and tobacco status: Never smoker Second hand smoke exposure: Yes Alcohol intake: never Substance use type: does not use Sophia/alevism: Zoroastrianism Special sophia needs: No Adopted: No Caregiver/support person: Yes (son) Household members: family Housing: house Lives independently: No Financial difficulty paying for basics: not applicable care home: No Current occupational status: retired Pets and animals: Yes Leisure activites: other History of recent travel: No Sexually active: No Do you think of yourself as: straight/heterosexual Current gender identity: female Seatbelt use: always Helmet use: No (N/A) Drives intoxicated or rides with intoxicated driver education instructor: No Water heater temperature set < 120 degrees: Yes Working smoke detector in home: Yes Fire extinguisher in home: Yes Carbon monoxide detector in home: Yes Firearms in home: No Allergies Allergies Allergy/AdvReac Type Severity Reaction Status Date / Time Penicillins Allergy Severe Unknown Verified 07/19/25 08:48 celecoxib (From Celebrex) Allergy Intermediate Nausea Verified 07/19/25 08:48 gabapentin Allergy Mild Unknown Verified 07/19/25 12:21 Iodinated Contrast Media Allergy Unknown Verified 07/19/25 08:48 (Iodinated Contrast Media - IV Dye) empagliflozin (From AdvReac Severe suicidal Verified 07/19/25 08:48 Jardiance) thoughts indomethacin (From Indocin) AdvReac Unknown unknown Verified 07/19/25 08:48 Sulfa (Sulfonamide AdvReac Unknown unknown Verified 07/19/25 08:48 Antibiotics) indomethacin sodium (From AdvReac Unknown Verified 07/19/25 08:48 Indocin) tramadol AdvReac Nausea Verified 07/19/25 08:48 Current Medications Home Medications Acetaminophen (Acetaminophen 325 Mg Tablet) 650 mg PO Q4H PRN PRN Reason: Mild Pain Sodium Chloride (Sodium Chloride) 1,000 mls @ 100 mls/hr IV .Q10H ONE Stop: 07/19/25 18:57 Last Admin: 07/19/25 10:07 Dose: 100 mls/hr Ondansetron HCl (Ondansetron Hcl/Pf 4 Mg/2 Ml Sdv) 4 mg IVP Q6H PRN PRN Reason: Nausea / Vomiting Potassium Chloride (Potassium Chloride 20 Meq Tab) 40 meq PO ONCE ONE Stop: 07/19/25 18:01 Sodium Chloride (0.9% Sodium Chloride 10 Ml Disp.Syrin) 1 syr IVF PRN PRN PRN Reason: To flush IV Baby Aspirin 81 mg PO DAILY 04/03/15 [History Confirmed 11/09/24] bimatoprost 0.03 % eye drops (Lumigan) 1 drp LEFTEYE BEDTIME 08/02/17 [History Confirmed 11/09/24] blood glucose control, normal (OneTouch Ultra Control solution) #100 strips 12/11/18 [History Confirmed 11/09/24] cholecalciferol (vitamin D3) 50 mcg (2,000 unit) capsule 50 mcg PO QDAY #30 caps 02/12/22 [Rx Confirmed 11/09/24] magnesium hydroxide 400 mg/5 mL oral suspension ([place]on Milk of Magnesia) 5 ml PO QDAY PRN Constipation 02/12/22 [History Confirmed 11/09/24] lidocaine 4 % topical cream 1 applic topical BID PRN pain, moderate #30 grams 06/15/22 [Rx Confirmed 11/09/24] amlodipine 5 mg tablet 5 mg PO QDAY 02/04/23 [History Confirmed 11/09/24] C.COMPRESSIONSTOCKINGS 03/31/23 [History Confirmed 11/09/24] bimatoprost 0.01 % eye drops (Lumigan) 1 drp LEFTEYE QPM 05/26/23 [History Confirmed 11/09/24] estradiol 10 mcg vaginal tablet See Rx Instructions .Route .COMPLEX #57 tabs 06/28/23 [Rx Confirmed 11/09/24] Compression pehjcbuo-vria-wovr strength #1 ea 07/29/23 [Rx Confirmed 11/09/24] Rollator Walker-with seat #1 ea 07/29/23 [Rx Confirmed 11/09/24] CERTAINTY OVERNIGHT PADS #1 ea 07/31/23 [Rx Confirmed 11/09/24] diclofenac sodium 1 % topical gel 2 g topical QID #100 grams 08/06/23 [Rx Confirmed 11/09/24] omeprazole 20 mg capsule,delayed release 20 mg PO QDAY 30 days #30 caps 11/10/23 [Rx Confirmed 11/09/24] lorazepam 1 mg tablet 1 mg PO QDAY PRN anxiety #30 tabs 12/16/23 [Rx Confirmed 11/09/24] gabapentin 300 mg capsule 300 mg PO Q12H PRN pain #20 caps 02/04/24 [Rx Confirmed 11/09/24] tramadol 50 mg tablet 50 mg PO BID PRN pain #10 tabs 02/04/24 [Rx Confirmed 11/09/24] losartan 100 mg-hydrochlorothiazide 25 mg tablet (Hyzaar) 1 tab PO DAILY #90 tabs 04/06/24 [Rx Confirmed 11/09/24] blood sugar diagnostic (Blood Glucose Test strips) #100 ea 06/28/24 [Rx Confirmed 11/09/24] lancing device with lancets kit ##100 06/30/24 [Rx Confirmed 11/09/24] Bedside Commode #1 ea 08/31/24 [Rx Confirmed 11/09/24] Depends for Urinary Incontinenece #1 ea 08/31/24 [Rx Confirmed 11/09/24] Poise Pads #1 ea 08/31/24 [Rx Confirmed 11/09/24] azelastine 137 mcg (0.1 %) nasal spray 1 spray intranasal BID #30 mL 08/31/24 [Rx Confirmed 11/09/24] albuterol sulfate 90 mcg/actuation aerosol inhaler 2 puff PO Q6H PRN for wheezing #8.5 grams 09/29/24 [Rx Confirmed 11/09/24] diclofenac sodium 3 % topical gel 1 applic topical BID 30 days #100 grams 11/09/24 [Rx Confirmed 11/09/24] digoxin 125 mcg (0.125 mg) tablet 125 mcg PO DAILY #90 tabs 11/23/24 [Rx] carbamazepine 100 mg chewable tablet 50 mg (1/2 x 100 mg) PO BEDTIME #90 tabs 12/07/24 [Rx] bimatoprost 0.01 % eye drops (Lumigan) 1 drp BOTHEYES QDAY #2.5 mL 06/06/25 [Rx] Opioid Naive vs. Tolerant Does Patient Take Opioids?: No Is Patient Opioid Naive?: Yes What is Opioid Naive?: *Opioid Naive implies the patient is not already taking opioids or not chronically receiving opioids on a daily basis. *PRN dosing is not "usually" associated with tolerance. *Patients are at higher risk of over-sedation and aspiration. Is Patient Opioid Tolerant?: No What is Opioid Tolerant?: *Opioid Tolerance implies less than the expected response to an opioid. *Acquired tolerance is defined by the patient taking 60mg of oral morphine daily (or equianalgesic dose of another opioid) for 1 week or more. *Often associated with chronic pain. *May take more than usual dose to achieve desired pain control. Review of Systems Constitutional: Denies Fever Head: Reports Normocephalic and Atraumatic Cardiovascular: Reports Edema; Denies Chest pain or Chest Pressure Respiratory: Denies Cough or Shortness of air Gastrointestinal: Reports Abdominal pain; Denies Nausea, Vomiting, Diarrhea, Constipation, Heartburn or Black Tarry Stools Genitourinary: Denies Dysuria or Frequency Neurological: Denies Headache Physical examination Most Recent Vital Signs: Most Recent Vital Signs Temperature 98.4 F 07/19/25 08:37 Temperature Source Infrared 07/19/25 08:37 Pulse Rate 72 07/19/25 08:37 Respiratory Rate 20 07/19/25 08:37 Blood Pressure 209/100 H 07/19/25 08:37 O2 Sat by Pulse Oximetry 97 07/19/25 08:37 Height 5 ft 4 in 07/19/25 08:37 Weight 50.9 kg 07/19/25 08:37 Telemetry Heart Rate 79 01/11/22 13:00 Appearance: Positive No Apparent Distress, Alert and Oriented x3 and Thin Skin: Positive [place], Warm and Good Turgor HEENT: Positive Normocephalic and Atraumatic Neck: Positive Supple and Midline Trachea Chest/Lungs: Positive Clear to Auscultation Bilaterally; Negative Rales, Rhonci or Wheezes Heart: Positive RRR GI/: Positive Soft, Nontender, Bowel Sounds Normal and No Distention; Negative Tender Extremities: Positive Edema (generalized lower ext edema, R>L ) Neurological: Positive Cranial Nerves Intact, Alert, Oriented and Other (+generalized weakness, frail ) Psychiatric: Positive Oriented x4, Appropriate Mood and Appropriate Affect Labs This Visit Labs This Visit: Labs This Visit 07/19/25 07/19/25 09:07 09:20 WBC 4.64 RBC 3.82 L Hgb 11.6 L Hct 36.7 L MCV 96.1 MCH 30.4 MCHC 31.6 L RDW Coeff of Ranjan 13.6 Plt Count 193 Immature Gran % (Auto) 0.2 Neut % (Auto) 82.6 H Lymph % (Auto) 14.0 [place] % (Auto) 2.8 Eos % (Auto) 0.0 Baso % (Auto) 0.4 Neut # (Auto) 3.8 Lymph # (Auto) 0.7 [place] # (Auto) 0.1 L Eos # (Auto) 0.0 Baso # (Auto) 0.0 Immature Gran # (Auto) 0.0 Sodium 139.9 Potassium 2.91 L Chloride 102.6 Carbon Dioxide 33.5 H Anion Gap 6.71 BUN 18.5 H Creatinine 0.58 L Estimated GFR (MDRD) 120.00 BUN/Creatinine Ratio 31.89 Glucose 192.1 H Lactic Acid 1.23 Calcium 9.03 Total Bilirubin 0.76 AST 37.8 H ALT 19.8 Alkaline Phosphatase 55.7 Total Protein 7.64 Albumin 4.20 Globulin 3.44 Albumin/Globulin Ratio 1.22 Lipase 52.2 Urine Color Yellow Urine Clarity Clear Urine pH 7.0 Ur Specific [place] 1.025 Urine Protein 2+ H Urine Glucose (UA) Trace H Urine Ketones 1+ H Urine Blood 2+ H Urine Nitrite Negative Urine Bilirubin Negative Urine Urobilinogen 1.0 H Ur Leukocyte Esterase Negative Urine Microscopic RBC 10-20 Ur Squamous Epith Cells 0-2 Imaging Imaging: CT ABDOMEN AND PELVIS WITHOUT CONTRAST INDICATION: 85-year-old female patient with right-sided abdominal pain COMPARISON: CT abdomen pelvis 10/17/2021 TECHNIQUE: Axial CT from the lung bases to the proximal femurs without intravenous contrast administration. Coronal and sagittal reformatted images were performed. One or more of the following dose reduction techniques were used: Automated exposure control, adjustment of the mA and/or kV according to patient size, use of iterative reconstruction technique. IV Contrast: None. Oral Contrast: None. FINDINGS: Evaluation of the vasculature and solid viscera is limited without intravenous contrast. Exam is limited to a moderate degree by motion artifact artifact from the patient's upper extremities and external support devices in the field of view the patient's lack of intraabdominal fat. Evaluation of the gastrointestinal tract is limited without intraluminal contrast. The lung bases are grossly clear. Multiple coronary artery calcification severe. Mild cardiomegaly. No pericardial or pleural effusions. Gallbladder biliary tract are grossly unremarkable. Liver spleen pancreas adrenal glands are grossly unremarkable. Extrarenal pelvis bilaterally. Pelvic phleboliths. No obvious large nephrolithiasis. No hydronephrosis or hydroureter. No intraperitoneal fluid or pneumoperitoneum. No small bowel obstruction. The appendix is not able to be confidently identified and the form a diagnosis of acute appendicitis cannot be confidently included nor excluded on the basis of this exam. Spondylosis and osteoarthrosis. IMPRESSION: Quite limited exam with no definite acute intra-abdominal process. EXAM: RIGHT LOWER EXTREMITY DEEP VENOUS ULTRASOUND WITH DOPPLER IMAGING HISTORY: Right leg pain and swelling. TECHNIQUE: Hidalgo-scale ultrasound with compression maneuvers and color and spectral Doppler ultrasound at rest and with augmentation of the veins was performed. Images were obtained and stored in a permanent archive. COMPARISON: None. FINDINGS: RIGHT LOWER EXTREMITY: The deep veins of the lower extremity were evaluated from the level of the common femoral vein proximally, through the level of the posterior tibial vein distally. All segments show normal compressibility and augmentation, and normal color flow. There is no evidence of intraluminal thrombosis. Greater saphenous vein is patent. Other: There is soft tissue edema. IMPRESSION: 1. No deep venous thrombosis (DVT) in the right lower extremity. Review Statement Review Statement: I have independently reviewed and interpreted the labs/EKGs/imaging that were ordered by the ER provider. I have reviewed all outside records that are available currently in our EMR including imaging/notes/labs from previous visits. Plan Plan: 1. Acute hypokalemia - 40 meq given in ER, will give another 40 meq this evening. Replace mag. 2. Hypomagnesemia - Mag 1.6. Goal is 2. 2 gm mag rider given. 3. Hypertension - Will give her usual medications and reevaluate 4. Abdominal pain - CT negative, pain resolved at this time, will monitor 5. GERD - Cont home meds DVT Prophylaxis: Ambulation Time Spent: Greater than 80 minutes spent with patient, 50% of the time spent with this patient was devoted to counseling and coordination of care. Advanced Care Planning: [3] minutes spent discussing advance care planning. Admit to:obs Discussed Plan of Care with Dr. Shannan Goins. Medications Medication Orders: Medications Ordered Category Date Time Status 0.9 % Sodium Chloride [Saline Flush] Meds 07/19/25 08:58 Active 1 syr IVF PRN PRN Sodium Chloride 0.9% [Sodium Chloride] 1,000 ml Meds 07/19/25 08:58 Active IV 100 mls/hr
[2025-07-19] MEDS ORDERED: ZOFRAN SDV IVP PRN (12:18)
[2025-07-19] MEDS ORDERED: TYLENOL PO PRN (12:18)
[2025-07-19 14:04] VITALS: BMI 19.3
[2025-07-19] MEDS: MAGNESIUM SULF 2 G/50 ML BAG 2 GM/50 ML PIGGYBACK IV ONE (14:33)
[2025-07-19] MEDS: K-DUR PO STA (14:33)
[2025-07-19] MEDS: K-DUR ONE (14:34)
[2025-07-19] MEDS: BRIMONIDINE TARTRATE 0.2% OPTH SOL EACHEYE SCH (16:13)
[2025-07-19] MEDS: LANOXIN PO SCH (16:13)
[2025-07-19] MEDS: ZESTRIL PO SCH (16:14)
[2025-07-19] MEDS: K-DUR PO ONE (17:19)
[2025-07-19 21:34] VITALS: RESP 18
[2025-07-20 05:14] VITALS: PULSE 57; TEMP 98.2
[2025-07-20 05:38] LABS: IMMATURE GRANULOCYTE # (AUTO) 0.0 (0.0-1.0); IMMATURE GRANULOCYTE % (AUTO) 0.2 % (0.0-5.0); RDW COEFFICIENT OF VARIATION 13.6 % (11.6-14.8)
[2025-07-20 06:03] LABS: CREATININE 0.82 mg/dL (0.60-1.30)
[2025-07-20 06:35] VITALS: BP 181/82
[2025-07-20] MEDS: LUMIGAN 0.03% EACHEYE SCH (08:49)
--- NOTE | 2025-07-20 09:40 | DCSUM ---
Admission Date Admission Date: 07/19/25 Discharge Date Discharge Date: 07/20/25 Admission Diagnosis Admission Diagnosis: 1. Acute hypokalemia 2. Hypomagnesemia 3. Hypertension 4. Abdominal pain Discharge Diagnosis Discharge Diagnosis: 1. Acute hypokalemia - resolved 2. Hypomagnesemia 3. Hypertension - improved 4. Abdominal pain - resolved 5. [facility] Hospital Provider Hospital Provider: MERA MILLER PA-C, [facility] [place] Care Physician Primary Care Physician: SORIN HUBBARD APRN Summary of History and Physical Summary of History and Physical: Patient is a 85 year old female from home with pmhx of DMt2, hyperlipidemia, hypertension, diabetic neuropathy, vitamin d deficiency, graves disease, who presents for abdominal pain. She is unclear on how long it's been going on. She points to her right central abdomen. Denies n/v/d. States she took an trudy seltzer but it didn't help. She states it currently no longer hurts. Denies chest pain or sob. In ER ct a/p was negative for acute findings but limited visualization. Venous US was done due to RLE swelling compared to left and was negative for DVT. Patient was found to have potassium of 2.9. She is frail, and from home. Will admit to [facility] for hypokalemia. Mag also 1.6. BP noted to be >200 systolic. Pt states she hasn't had her medications today. Hospital Course Subjective: Pt denies abdominal pain today. Patient's potassium replaced. Mag replaced. Med list sent over from her pharmacy, showing she had not filled losartan/hctz in >1 year. Amlodipine was also not on the list. She had only been filling digoxin and eye drops. Unclear diagnosis for digoxin use. She states she does take BP pills but that she just has an excess of them at home and she "doesn't steal" so she doesn't get refills if she doesn't need them. Nurse called son and he had bottle infront of him with losartan/hctz with pills in it available. Will continue but will add amlodipine. Will need to monitor her peripheral edema for worsening. Otherwise BP is not at goal. F/u with pcp for further adjustments. If hypokalemia continues, may need to discontinue hctz or add potassium supplement but patient declines wanting supplement at this time as she doesn't like taking it. Patient otherwise agrees to plan of care. [facility] referral made. Appearance: Pleasant, No Apparent Distress and Alert HEENT: Supple CVS: Other (RRR) Abdomen: Soft, Non-Tender and No Distention Respiratory: No Accessory Muscle Use Extremities: Other (+generalized lower ext edema ) Vital Signs: Most Recent Vital Signs Temperature 98.2 F 07/20/25 05:14 Temperature Source Temporal Artery Scan 07/20/25 05:14 Temperature Source Infrared 07/19/25 08:37 Pulse Rate 57 L 07/20/25 05:14 Respiratory Rate 18 07/20/25 05:14 Blood Pressure 181/82 H 07/20/25 06:35 Blood Pressure Mean 115 07/20/25 06:35 Blood Pressure Left Arm 171/87 07/19/25 13:34 Blood Pressure Location Right Arm 07/20/25 06:35 Blood Pressure Position Sitting 07/20/25 06:35 O2 Sat by Pulse Oximetry 96 07/20/25 05:14 Oxygen Delivery Method Room Air 07/20/25 09:00 Height 5 ft 4 in 07/19/25 13:34 Weight 51 kg 07/19/25 13:34 Telemetry Type Remote Telemetry 07/20/25 07:00 Telemetry Monitoring Continues 07/20/25 07:00 Irregular Telemetry Rate (Approximate) 70-80 BPM 07/19/25 13:46 Telemetry Heart Rate 43 L 07/20/25 07:00 EKG MD Interval 0.20 07/20/25 07:00 EKG QRS Interval 0.06 07/20/25 07:00 Telemetry Strip Reading Sinus [place] 07/20/25 07:00 Imaging: CT ABDOMEN AND PELVIS WITHOUT CONTRAST INDICATION: 85-year-old female patient with right-sided abdominal pain COMPARISON: CT abdomen pelvis 10/17/2021 TECHNIQUE: Axial CT from the lung bases to the proximal femurs without intravenous contrast administration. Coronal and sagittal reformatted images were performed. One or more of the following dose reduction techniques were used: Automated exposure control, adjustment of the mA and/or kV according to patient size, use of iterative reconstruction technique. IV Contrast: None. Oral Contrast: None. FINDINGS: Evaluation of the vasculature and solid viscera is limited without intravenous contrast. Exam is limited to a moderate degree by motion artifact artifact from the patient's upper extremities and external support devices in the field of view the patient's lack of intraabdominal fat. Evaluation of the gastrointestinal tract is limited without intraluminal contrast. The lung bases are grossly clear. Multiple coronary artery calcification severe. Mild cardiomegaly. No pericardial or pleural effusions. Gallbladder biliary tract are grossly unremarkable. Liver spleen pancreas adrenal glands are grossly unremarkable. Extrarenal pelvis bilaterally. Pelvic phleboliths. No obvious large nephrolithiasis. No hydronephrosis or hydroureter. No intraperitoneal fluid or pneumoperitoneum. No small bowel obstruction. The appendix is not able to be confidently identified and the form a diagnosis of acute appendicitis cannot be confidently included nor excluded on the basis of this exam. Spondylosis and osteoarthrosis. IMPRESSION: Quite limited exam with no definite acute intra-abdominal process. EXAM: RIGHT LOWER EXTREMITY DEEP VENOUS ULTRASOUND WITH DOPPLER IMAGING HISTORY: Right leg pain and swelling. TECHNIQUE: Hidalgo-scale ultrasound with compression maneuvers and color and spectral Doppler ultrasound at rest and with augmentation of the veins was performed. Images were obtained and stored in a permanent archive. COMPARISON: None. FINDINGS: RIGHT LOWER EXTREMITY: The deep veins of the lower extremity were evaluated from the level of the common femoral vein proximally, through the level of the posterior tibial vein distally. All segments show normal compressibility and augmentation, and normal color flow. There is no evidence of intraluminal thrombosis. Greater saphenous vein is patent. Other: There is soft tissue edema. IMPRESSION: 1. No deep venous thrombosis (DVT) in the right lower extremity. Lab Results Last 24 Hours: 07/20/25 07/19/25 07/19/25 05:32 09:20 09:07 WBC 4.22 L RBC 3.31 L Hgb 10.0 L Hct 32.1 L MCV 97.0 MCH 30.2 MCHC 31.2 L RDW Coeff of Ranjan 13.6 Plt Count 172 Immature Gran % (Auto) 0.2 Neut % (Auto) 49.7 Lymph % (Auto) 39.1 Howard % (Auto) 8.8 Eos % (Auto) 1.7 Baso % (Auto) 0.5 Neut # (Auto) 2.1 Lymph # (Auto) 1.7 Howard # (Auto) 0.4 Eos # (Auto) 0.1 Baso # (Auto) 0.0 Immature Gran # (Auto) 0.0 Sodium 140.4 Potassium 3.72 Chloride 108.3 H Carbon Dioxide 33.5 H Anion Gap 2.32 BUN 17.0 Creatinine 0.82 Estimated GFR (MDRD) 80.00 BUN/Creatinine Ratio 20.73 Glucose 125.9 H D Lactic Acid 1.23 Calcium 8.90 Magnesium 1.69 Total Bilirubin 0.77 AST 24.6 ALT 15.8 Alkaline Phosphatase 43.0 L Total Protein 5.87 L Albumin 3.16 L Globulin 2.71 Albumin/Globulin Ratio 1.16 Urine Color Yellow Urine Clarity Clear Urine pH 7.0 Ur Specific [place]ton 1.025 Urine Protein 2+ H Urine Glucose (UA) Trace H Urine Ketones 1+ H Urine Blood 2+ H Urine Nitrite Negative Urine Bilirubin Negative Urine Urobilinogen 1.0 H Ur Leukocyte Esterase Negative Urine Microscopic RBC 10-20 Ur Squamous Epith Cells 0-2 Discharge Instructions Discharge Planning: Discharge Planning > [address] Shannan Goins. Discharge Medications: Medications at Discharge (Home Meds & RX) blood glucose control, normal (OneTouch Ultra Control solution) #100 strips 12/11/18 C.COMPRESSIONSTOCKINGS 03/31/23 Compression [id number] strength #1 ea 07/29/23 Rollator Walker-with seat #1 ea 07/29/23 CERTAINTY OVERNIGHT PADS #1 ea 07/31/23 blood sugar diagnostic (Blood Glucose Test strips) #100 ea 06/28/24 lancing device with lancets kit ##100 06/30/24 Bedside Commode #1 ea 08/31/24 Depends for Urinary Incontinenece #1 ea 08/31/24 Poise Pads #1 ea 08/31/24 digoxin 125 mcg (0.125 mg) tablet 125 mcg PO DAILY #90 tabs 11/23/24 bimatoprost 0.01 % eye drops (Lumigan) 1 drp BOTHEYES QDAY #2.5 mL 06/06/25 brimonidine 0.2 % eye drops 1 drp ophthalmic (eye) BID 07/19/25 amlodipine 5 mg tablet 5 mg PO DAILY #30 tabs 07/20/25 losartan 100 mg-hydrochlorothiazide 25 mg tablet (Hyzaar) 1 tab PO DAILY 07/20/25 Discharge Plan Discharge Discharge Orders: Discharge Patient (ONCE); Ordered 07/20/25 Ordered By: MERA MILLER Activity Restrictions/Additional Instructions: DISCHARGE TO HOME DX: LOW POTASSIUM YOUR BLOOD PRESSURE HAS BEEN HIGH, A NEW BLOOD PRESSURE PILL CALLED AMLODIPINE HAS BEEN SENT IN FOR YOU PLEASE FOLLOW UP WITH PCP FOR RECHECK RETURN WITH WORSENING SYMPTOMS You have been referred to [facility]. They will be in contact with you to initiate home and family living professor services. If you have any questions or need to speak with them, their contact number is [phone]. Instructions: Abdominal Pain (ED) Patient Disposition: HOME WITH FAMILY CARE Prescriptions: New amlodipine 5 mg tablet 5 mg PO DAILY Qty: 30 0RF Continued digoxin 125 mcg (0.125 mg) tablet 125 mcg PO DAILY Qty: 90 0RF Lumigan 0.01 % drops 1 drp BOTHEYES QDAY Qty: 2.5 1RF brimonidine 0.2 % drops 1 drp ophthalmic (eye) BID losartan-hydrochlorothiazide [Hyzaar] 100-25 mg tablet 1 tab PO DAILY No Action (DME) blood glucose control, normal [OneTouch Ultra Control] 1 EACH solution 1 strip MC BID Qty: 100 (DME) C.COMPRESSIONSTOCKINGS Misc See Rx Instructions .ROUTE Rx Instructions: 20-30mm pressure. as directed per Vascular (DME) CERTAINTY OVERNIGHT PADS See Rx Instructions .ROUTE .MEDSUPPLY Qty: 1 3RF Rx Instructions: Change pads as needed for incontinence (DME) Blood Glucose Test Strip See Rx Instructions .ROUTE .MEDSUPPLY Qty: 100 2RF Rx Instructions: three times daily (DME) lancing device with lancets Kit 1 ea MC TID Qty: 100 1RF Rx Instructions: 33G (DME) Bedside Commode See Rx Instructions .ROUTE .MEDSUPPLY Qty: 1 0RF Rx Instructions: As directed (DME) Depends for Urinary Incontinenece See Rx Instructions .ROUTE .MEDSUPPLY Qty: 1 0RF Rx Instructions: Change every 4 hours as needed for urinary incontinence (DME) Poise Pads See Rx Instructions .ROUTE .MEDSUPPLY Qty: 1 0RF Rx Instructions: Use in depends every 4 hours for added incontinence protection (DME) Rollator Walker-with seat See Rx Instructions .ROUTE .MEDSUPPLY Qty: 1 0RF Rx Instructions: As directed (DME) Compression [id number]-[id number] strength See Rx Instructions .ROUTE .MEDSUPPLY Qty: 1 0RF Rx Instructions: As directed Did you review [place] [employer]ER[employer]IST for ALL controlled substances?: Not Applicable Discussed opioids are addictive and Narcan is available by prescription or from pharmacy.: No Condition: Stable Referrals: SORIN HUBBARD APRN [Primary Care Provider, NURSE PRACTITIONER] - 07/27/25 1:00 pm
== END 2025-07-20 12:20 | disposition home or self-care (01) ==
LOC: MEDSURG B 08:30 → ED 08:30 → MEDSURG B 13:30
PROVIDERS: ADMIT Hospitalist; ATTEND Physician Assistant
DX: R60.0 Localized edema; E83.42 Hypomagnesemia; M79.605 Pain in left leg; R10.9 Unspecified abdominal pain; M79.604 Pain in right leg; E87.6 Hypokalemia; I10 Essential (primary) hypertension; Z79.899 Other long term (current) drug therapy; Z51.81 Encounter for therapeutic drug level monitoring; K21.9 Gastro-esophageal reflux disease without esophagitis